=== PATIENT | male | born 1970 | race Caucasian/White ===

== ENCOUNTER 2023-06-11 22:19 | Emergency (ER) | payer OTHER, SELFPAY ==
--- OUTSIDE RECORDS SUMMARY | 2023-06-11 22:23 | XMS REPORT | Continuity of Care Document ---
Author Name Unknown Address [address] [facility] [address] [place] [address] [facility] thconnect Address [address] [facility] [address] [place] [address] Care Team Providers Care Infantry Officer Name Role Phone Edwardo Young Attending Clinician Unavailable VIOLET LEBLANC Attending Clinician Unavailable JADA JACKSON Attending Clinician Unavailable ELLIE JONES Attending Clinician Unavailable Payers Payer Name Policy Type Policy Number Effective Date Expirati on Date Source [facility] 53 [id number] 2021 00:00:00 2022 00:00:00 [facility] [employer] 53 [id number] 2019 00:00:00 [facility] Problems Condition Name Condition Details Condition Category Status Onset Date Resolution Date Last Treatment Date Treating Clinician Comments Source [id number] Cataract of both eyes, unspecifie d cataract type Problem [facility] [id number] Mixed hyperlipid emia Problem [facility] [id number] Diverticul osis Problem [facility] [id number] Asymptomat ic hypertensi ve urgency Problem [facility] [id number] Body mass index [BMI] 37.0-37.9, adult Problem [facility] [id number] GERD without esophagiti s Problem [facility] [id number] Other tear of medial meniscus of right knee as current injury, subsequent encounter Problem [facility] [id number] HTN, goal below 140/90 Problem [facility] [id number] Obstructiv e sleep apnea (adult) (pediatric ) Problem [facility] [id number] Dependence on other enabling machines and devices Problem [facility] [id number] Chewing tobacco nicotine dependence without complicati on Problem [facility] [id number] Morbid (severe) obesity due to excess calories Problem [facility] [id number] 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 Problem [facility] [id number] Stented coronary artery Problem [facility] [id number] Abnormal chest xray Problem [facility] Post-infla mmatory pulmonary fibrosis Lung granuloma Problem [facility] Allergies, Adverse Reactions, Alerts Allergy Name Allergy Type Status Severity Reaction(s) Onset Date Inactive Date Treating Clinician Comments Source No Known Allergie s DA Active U 2019-05 00:00: 00 [facility] No Known Allergie s DA Active U 2019-05 00:00: 00 [facility] Social History Social Habit Start Date Stop Date Quantity Comments Source History of Tobacco Use Light tobacco smoker [facility] Sex Assigned At [facility] Smoking Status Start Date Stop Date Source Light tobacco smoker 2022-02-19 00:00:00 [facility] Medications Ordered Medication Name Filled Medication Name Start Date Stop Date Current Medication? Ordering Clinician Indication Dosage Frequency Signature (SIG) Comments Components Source Ozempic 0.25 or 0.5 MG/DOSE Ozempic 0.25 or 0.5 MG/DOSE 2021-0 10-30 00:00: 00 01-28 00:00 :00 No Ozempic 0.25 or 0.5 MG/DOSE Ozempic 0.25 or 0.5 MG/DOSE Ozempic 0.25 or 0.5 MG/DOSE 2021-0 7 00:00: 00 01-28 00:00 :00 No Ozempic 0.25 or 0.5 MG/DOSE Ozempic 0.25 or 0.5 MG/DOSE Ozempic 0.25 or 0.5 MG/DOSE 2021-0 10-30 00:00: 00 01-28 00:00 :00 No Ozempic 0.25 or 0.5 MG/DOSE Ozempic 0.25 or 0.5 MG/DOSE Ozempic 0.25 or 0.5 MG/DOSE 2021-0 10-30 00:00: 00 01-28 00:00 :00 No Ozempic 0.25 or 0.5 MG/DOSE metFORMIN HCl ER 750 MG metFORMIN HCl ER 750 MG 0 2 00:00: 00 No 1{table t_with_ evening _meal} QD metFORMIN HCl ER 750 MG metFORMIN HCl ER 750 MG metFORMIN HCl ER 750 MG 0 211 00:00: 00 No 1{table t_with_ evening _meal} QD metFORMIN HCl ER 750 MG Lisinopril Lisinopril 09-17 00:00: 00 Yes Edwardo Young TAKE 1 TABLET BY MOUTH EVERY DAY [facility] Hydrochloro thiazide Hydrochloro thiazide 09-17 00:00: 00 Yes Edwardo Young 1 tablet in the morning [facility] Bystolic Bystolic Yes Edwardo Young 1 tablet [facility] Amlodipine Besylate Amlodipine Besylate Yes Edwardo Young 1 tablet [facility] NIFEdipine ER 60 MG NIFEdipine ER 60 MG No 1{table t_on_an _empty_ stomach } QD NIFEdipine ER 60 MG Atorvastati n Calcium 80 MG Atorvastati n Calcium 80 MG No 1{table t} QD Atorvastat in Calcium 80 MG Brilinta 90 MG Brilinta 90 MG No 1{table t} BID Brilinta 90 MG Lisinopril 40 MG Lisinopril 40 MG No 1{table t} QD Lisinopril 40 MG NIFEdipine ER 60 MG NIFEdipine ER 60 MG No 1{table t_on_an _empty_ stomach } QD NIFEdipine ER 60 MG metFORMIN HCl ER 750 MG metFORMIN HCl ER 750 MG No 1{table t_with_ evening _meal} QD metFORMIN HCl ER 750 MG Lisinopril 40 MG Lisinopril 40 MG No 1{table t} QD Lisinopril 40 MG Chlorthalid one 25 MG Chlorthalid one 25 MG No 1{table t_in e_morni ng_with _food} QD Chlorthali done 25 MG Brilinta 90 MG Brilinta 90 MG No 1{table t} BID Brilinta 90 MG Carvedilol 12.5 MG Carvedilol 12.5 MG No 1{table t_with_ food} BID Carvedilol 12.5 MG Atorvastati n Calcium 80 MG Atorvastati n Calcium 80 MG No 1{table t} QD Atorvastat in Calcium 80 MG atorvastati n atorvastati n No atorvastat in metFORMIN HCl ER 750 MG metFORMIN HCl ER 750 MG No 1{table t_with_ evening _meal} QD metFORMIN HCl ER 750 MG Atorvastati n Calcium 80 MG Atorvastati n Calcium 80 MG No 1{table t} QD Atorvastat in Calcium 80 MG Lisinopril 40 MG Lisinopril 40 MG No 1{table t} QD Lisinopril 40 MG NIFEdipine ER 60 MG NIFEdipine ER 60 MG No 1{table t_on_an _empty_ stomach } QD NIFEdipine ER 60 MG Carvedilol 12.5 MG Carvedilol 12.5 MG No 1{table t_with_ food} BID Carvedilol 12.5 MG Lisinopril 40 MG Lisinopril 40 MG No 1{table t} QD Lisinopril 40 MG atorvastati n atorvastati n No atorvastat in Brilinta 90 MG Brilinta 90 MG No 1{table t} BID Brilinta 90 MG Chlorthalid one 25 MG Chlorthalid one 25 MG No 1{table t_in e_morni ng_with _food} QD Chlorthali done 25 MG metFORMIN HCl ER 750 MG metFORMIN HCl ER 750 MG No BID metFORMIN HCl ER 750 MG Atorvastati n Calcium 80 MG Atorvastati n Calcium 80 MG No 1{table t} QD Atorvastat in Calcium 80 MG Lisinopril 40 MG Lisinopril 40 MG No 1{table t} QD Lisinopril 40 MG NIFEdipine ER 60 MG NIFEdipine ER 60 MG No 1{table t_on_an _empty_ stomach } QD NIFEdipine ER 60 MG Carvedilol 12.5 MG Carvedilol 12.5 MG No 1{table t_with_ food} BID Carvedilol 12.5 MG Lisinopril 40 MG Lisinopril 40 MG No 1{table t} QD Lisinopril 40 MG atorvastati n atorvastati n No atorvastat in Brilinta 90 MG Brilinta 90 MG No 1{table t} BID Brilinta 90 MG Chlorthalid one 25 MG Chlorthalid one 25 MG No 1{table t_in e_morni ng_with _food} QD Chlorthali done 25 MG metFORMIN HCl ER 750 MG metFORMIN HCl ER 750 MG No BID metFORMIN HCl ER 750 MG Atorvastati n Calcium 80 MG Atorvastati n Calcium 80 MG No 1{table t} QD Atorvastat in Calcium 80 MG Lisinopril 40 MG Lisinopril 40 MG No 1{table t} QD Lisinopril 40 MG NIFEdipine ER 60 MG NIFEdipine ER 60 MG No 1{table t_on_an _empty_ stomach } QD NIFEdipine ER 60 MG Carvedilol 12.5 MG Carvedilol 12.5 MG No 1{table t_with_ food} BID Carvedilol 12.5 MG Lisinopril 40 MG Lisinopril 40 MG No 1{table t} QD Lisinopril 40 MG atorvastati n atorvastati n No atorvastat in Brilinta 90 MG Brilinta 90 MG No 1{table t} BID Brilinta 90 MG Chlorthalid one 25 MG Chlorthalid one 25 MG No 1{table t_in e_morni ng_with _food} QD Chlorthali done 25 MG Lisinopril 40 MG Lisinopril 40 MG No 1{table t} QD Lisinopril 40 MG Lisinopril 40 MG Lisinopril 40 MG No 1{table t} QD Lisinopril 40 MG metFORMIN HCl ER 750 MG metFORMIN HCl ER 750 MG No metFORMIN HCl ER 750 MG Chlorthalid one 25 MG Chlorthalid one 25 MG No Chlorthali done 25 MG Atorvastati n Calcium 80 MG Atorvastati n Calcium 80 MG No 1{table t} QD Atorvastat in Calcium 80 MG Brilinta 90 MG Brilinta 90 MG No 1{table t} BID Brilinta 90 MG atorvastati n atorvastati n No atorvastat in Carvedilol 12.5 MG Carvedilol 12.5 MG No 1{table t_with_ food} BID Carvedilol 12.5 MG NIFEdipine ER 60 MG NIFEdipine ER 60 MG No NIFEdipine ER 60 MG atorvastati n atorvastati n No atorvastat in Brilinta Brilinta No Brilinta Lisinopril 40 MG Lisinopril 40 MG No 1{table t} QD Lisinopril 40 MG Carvedilol Carvedilol No Carvedilol Chlorthalid one 25 MG Chlorthalid one 25 MG No 1{table t_in e_morni ng_with _food} QD Chlorthali done 25 MG atorvastati n atorvastati n No atorvastat in Lisinopril 40 MG Lisinopril 40 MG No 1{table t} QD Lisinopril 40 MG Lisinopril 40 MG Lisinopril 40 MG No 1{table t} QD Lisinopril 40 MG Carvedilol 12.5 MG Carvedilol 12.5 MG No 1{table t_with_ food} BID Carvedilol 12.5 MG NIFEdipine ER 60 MG NIFEdipine ER 60 MG No 1{table t_on_an _empty_ stomach } QD NIFEdipine ER 60 MG Atorvastati n Calcium 80 MG Atorvastati n Calcium 80 MG No 1{table t} QD Atorvastat in Calcium 80 MG Brilinta 90 MG Brilinta 90 MG No 1{table t} BID Brilinta 90 MG Chlorthalid one 25 MG Chlorthalid one 25 MG No 1{table t_in e_morni ng_with _food} QD Chlorthali done 25 MG atorvastati n atorvastati n No atorvastat in Lisinopril 40 MG Lisinopril 40 MG No 1{table t} QD Lisinopril 40 MG Lisinopril 40 MG Lisinopril 40 MG No 1{table t} QD Lisinopril 40 MG Carvedilol 12.5 MG Carvedilol 12.5 MG No 1{table t_with_ food} BID Carvedilol 12.5 MG Aspirin Adult Low Dose 81 MG Aspirin Adult Low Dose 81 MG 09-10 00:00 :00 No 1{table t} QD Aspirin Adult Low Dose 81 MG Aspirin Adult Low Dose 81 MG Aspirin Adult Low Dose 81 MG 09-10 00:00 :00 No 1{table t} QD Aspirin Adult Low Dose 81 MG Vital Signs Vital Name Observation Time Observation Value Comments S normace height 2021-11-27 07:50:00 70 [in_i] Commo n [facility] weight 2021-11-27 07:50:00 238 [lb_av] Comm on [facility] temperature 2021-11-27 07:50:00 98 [degF] Comm on [facility] bmi 2021-11-27 07:50:00 34.15 kg/m2 Comm on [facility] blood pressure systolic 2021-11-27 07:50:00 120 mm[Hg] Common [facility] blood pressure diastolic 2021-11-27 07:50:00 70 mm[Hg] Common [facility] height 2021-10-30 08:20:00 70 [in_i] Commo n [facility] weight 2021-10-30 08:20:00 251.1 [lb_av] Co mmon [facility] temperature 2021-10-30 08:20:00 98.1 [degF] Com mon [facility] bmi 2021-10-30 08:20:00 36.03 kg/m2 Comm on [facility] oximetry 2021-10-30 08:20:00 98 % Commo n [facility] respiratory rate 2021-10-30 08:20:00 17 /min Common [facility] blood pressure systolic 2021-10-30 08:20:00 127 mm[Hg] Common [facility] blood pressure diastolic 2021-10-30 08:20:00 64 mm[Hg] Common [facility] height 2021-06-12 10:20:00 70 [in_i] Commo n [facility] weight 2021-06-12 10:20:00 250.3 [lb_av] Co on [facility] temperature 2021-06-12 10:20:00 97.8 [degF] Com mon [facility] bmi 2021-06-12 10:20:00 35.91 kg/m2 Comm on [facility] oximetry 2021-06-12 10:20:00 99 % Commo n [facility] respiratory rate 2021-06-12 10:20:00 18 /min [facility] blood pressure systolic 2021-06-12 10:20:00 111 mm[Hg] [facility] blood pressure diastolic 2021-06-12 10:20:00 61 mm[Hg] Common [facility] height 2021-04-13 15:50:00 70 [in_i] Commo n [facility] weight 2021-04-13 15:50:00 268.8 [lb_av] Co [facility] bmi 2021-04-13 15:50:00 38.56 kg/m2 Comm on [facility] blood pressure systolic 2021-04-13 15:50:00 139 mm[Hg] Common [facility] blood pressure diastolic 2021-04-13 15:50:00 78 mm[Hg] [facility] Procedures Procedure Date / Time Performed Performing Clinicia n Source [id number] 2020-04-24 00:00:00 LETTY [facility] [id number] 2020-04-24 00:00:00 PATSN [facility] [id number] 2020-04-24 00:00:00 PATSN [facility] [id number] 2020-04-24 00:00:00 PATSN [facility] Encounters Start Date/Time End Date/Time Encounter Type Admission Type Attending [facility] Care Facility Care Department Encounter ID Source 2022-03-10 08:38:01 Outpatient Young, Edwardo STLC STLMLC [id number] [facility] 2021-12-03 14:16:00 Outpatient Young, Edwardo STLC STLMLC [id number] [facility] 2021-11-16 15:38:00 Outpatient Young, Edwardo STLC STLMLC [id number] [facility] 2021-11-04 17:14:00 Outpatient Young, Edwardo STLMLC STLMLC [id number] [facility] 2021-10-28 16:46:00 Outpatient Young, Edwardo STLMLC STLMLC [id number] [facility] 2021-09-10 11:53:01 Outpatient Young, Edwardo STLMLC STLMLC [id number] [facility] 2021-05-27 14:24:18 Outpatient Young, Edwardo STLMLC STLMLC [id number] [facility] 2021-05-27 14:23:20 Outpatient Young, Edwardo STLMLC STLMLC [id number] [facility] 2021-05-27 14:20:17 Outpatient Young, Edwardo STLMLC STLMLC [id number] [facility] 2021-05-27 13:13:03 Outpatient Young, Edwardo STLMLC STLMLC [id number] [facility] 2021-05-27 12:04:57 Outpatient Young, Edwardo STLMLC STLMLC [id number] [facility] 2021-05-27 11:25:35 Outpatient Young, Edwardo STLC STL[facility]C [id number] [facility] 2021-05-27 11:15:47 Outpatient Young, Edwardo STLC STL[facility] [id number] [facility] 2021-05-27 11:15:20 Outpatient Young, Edwardo STLC STL[facility]C [id number] [facility] 2020-04-24 16:23:00 In[id number] [facility] 2022-02-18 00:00:00 2022-02-18 00:00:00 (TEL) STLMLC STLMLC [id number] [facility] 2021-12-04 00:00:00 2021-12-04 00:00:00 (TEL) STLMLC STLMLC [id number] [facility] 2021-12-04 00:00:00 2021-12-04 00:00:00 (TEL) STLMLC STLMLC [id number] [facility] 2021-11-27 00:00:00 2021-11-27 00:00:00 OFFICE VISIT ESTAB PT LEVEL 4 STLMLC STLMLC [id number] [facility] 2021-10-30 00:00:00 2021-10-30 00:00:00 PREV VISIT EST AGE 40-64 STLMLC STLMLC [id number] [facility] 2021-07-20 00:00:00 2021-07-20 00:00:00 Outpatient VIOLET LEBLANC [id number] [facility] 2021-06-12 00:00:00 2021-06-12 00:00:00 OFFICE VISIT ESTAB PT LEVEL 4 STLMLC STLMLC [id number] [facility] 2021-06-12 00:00:00 2021-06-12 00:00:00 (TEL) STLMLC STLMLC [id number] [facility] 2021-04-21 00:00:00 2021-04-21 00:00:00 Outpatient [facility]ADA [facility]ACKSON [id number] [facility] 2021-04-13 00:00:00 2021-04-13 00:00:00 OFFICE VISIT EST PT LEVEL 3 STLMLC STLMLC [id number] [facility] 2021-04-08 00:00:00 2021-04-08 00:00:00 Outpatient JADA JACKSON [id number] [facility] 2021-03-30 00:00:00 2021-03-30 00:00:00 Outpatient JADA JACKSON [id number] [facility] 2021-03-05 14:00:00 2021-03-05 14:00:00 Outpatient ELLIE JONES [id number] [facility] 2020-03-31 00:00:00 2020-03-31 00:00:00 Outpatient STLMLC STLMLC [id number] [facility] 2020-03-21 00:00:00 2020-03-21 00:00:00 Outpatient STLMLC STLMLC [id number] [facility] 2019-10-19 08:45:00 2019-10-19 08:45:[address] [facility] [id number] [facility] 2019-09-18 15:15:00 2019-09-18 15:15:[address] [facility] [id number] [facility] 2019-09-06 13:25:00 2019-09-06 13:25:00 [facility] [id number] [facility] 2019-07-06 11:15:00 2019-07-06 11:15:00 [address] [facility] [id number] [facility] Results Test Description Test Time Test Comments Results Result Co mments Source COMPREHENSIVE METABOLIC [id number] 08:13:00* Test Item Value Reference Range Interpretation Comme nts SODIUM (test code = NA) 137 mEq/L 134-147 N POTASSIUM (test code = K) 3.7 mEq/L 3.4-5.0 N CHLORIDE (test code = CL) 106 mEq/L 100-108 N CARBON DIOXIDE (test code = CO2) 25 mEq/l 21-33 N ANION GAP (test code = GAP) 10 0-20 N GLUCOSE (test code = GLU) 147 mg/dL 70-110 H BLOOD UREA NITROGEN (test code = BUN) 15 mg/dL 7-18 GLOMERULAR FILTRATION RATE (test code = GFR) 90.1 95-105 L Units of measure = ml/min/1.73 m2 CREATININE (test code = CREAT) 0.9 mg/dL 0.6-1.3 N TOTAL PROTEIN (test code = PROT) 6.8 g/dL 6.4-8.2 N ALBUMIN (test code = ALB) 3.80 g/dL 3.4-5.0 N CALCIUM (test code = CA) 9.3 mg/dL 8.0-10.5 N BILIRUBIN TOTAL (test code = BILT) 1.00 mg/dL 0.0-1.0 N SGOT/AST (test code = AST) 39 IUnit/L 15-37 H SGPT/ALT (test code = ALT) 61 IUnit/L 30-65 N ALKALINE PHOSPHATASE TOTAL (test code = ALKP) 57 IUnit/L 20-125 N CBC W/AUTO [id number] 07:55:00* Test Item Value Reference Range Interpretation Comme nts WHITE BLOOD CELL (test code = WBC) 8.3 x10 3/uL 4.5-11.0 N RED BLOOD CELL (test code = RBC) 5.03 x10 6/uL 4.00-5.60 N HEMOGLOBIN (test code = HGB) 15.7 g/dL 12.5-16.9 N HEMATOCRIT (test code = HCT) 46.5 % 37.5-50.7 N MEAN CELL VOLUME (test code = MCV) 92.4 fL 81.0-99.0 N MEAN CELL HGB (test code = MCH) 31.2 pg 27.0-33.0 N MEAN CELL HGB CONCETRATION (test code = MCHC) 33.8 g/dL 33.0-37.0 N RED CELL DISTRIBUTION WIDTH CV (test code = RDW) 12.6 % 11.5-14.5 N RED CELL DISTRIBUTION WIDTH SD (test code = RDW-SD) 42.7 fL 37.0-54.0 N PLATELET COUNT (test code = PLT) 201 x10 3/uL 150-400 N MEAN PLATELET VOLUME (test c ode = MPV) 10.4 fL 7.0-9.0 H NEUTROPHIL % (test code = NT%) 69.3 % 56.0-77.0 N IMMATURE GRANULOCYTE % (test code = IG%) 0.4 % 0.0-2.0 N LYMPHOCYTE % (test code = LY%) 15.6 % 14.0-32.0 N MONOCYTE % (test code = MO%) 10.7 % 4.8-9.0 H EOSINOPHIL % (test code = EO%) 3.2 % 0.3-3.7 N BASOPHIL % (test code = BA%) 0.8 % 0.0-2.0 N NUCLEATED RBC % (test code = NRBC%) 0.0 % 0-0 N NEUTROPHIL # (test code = NT#) 5.75 x10 3/uL 2.0-7.6 N IMMATURE GRANULOCYTE # (test code = IG#) 0.03 x10 3/uL 0.00-0.03 N LYMPHOCYTE # (test code = LY#) 1.30 x10 3/uL 1.0-3.8 N MONOCYTE # (test code = MO#) 0.89 x10 3/uL 0.1-0.8 H EOSINOPHIL # (test code = EO#) 0.27 x10 3/uL 0.0-0.2 H BASOPHIL # (test code = BA#) 0.07 x10 3/uL 0.0-0.2 N NUCLEATED RBC # (test code = NRBC#) 0.00 x10 3/uL 0.0-0.1 N MANUAL DIFF REQUIRED (test c ode = MDIFF) NO CBC W/AUTO [id number] 07:46:00* Test Item Value Reference Range Interpretation Comme nts WHITE BLOOD CELL (test code = WBC) x10 3/uL 4.5-11.0 RED BLOOD CELL (test code = RBC) x10 6/uL 4.00-5.60 HEMOGLOBIN (test code = HGB) 15.7 g/dL 12.5-16.9 N HEMATOCRIT (test code = HCT) 46.5 % 37.5-50.7 N MEAN CELL VOLUME (test code = MCV) fL 81.0-99.0 MEAN CELL HGB (test code = MCH) pg 27.0-33.0 MEAN CELL HGB CONCETRATION ( test code = MCHC) g/dL 33.0-37.0 RED CELL DISTRIBUTION WIDTH CV (test code = RDW) % 11.5-14.5 PLATELET COUNT (test code = PLT) 201 x10 3/uL 150-400 N NEUTROPHIL % (test code = NT%) % 56.0-77.0 LYMPHOCYTE % (test code = LY%) % 14.0-32.0 NEUTROPHIL # (test code = NT#) x10 3/uL 2.0-7.6 LYMPHOCYTE # (test code = LY#) x10 3/uL 1.0-3.8 MANUAL DIFF REQUIRED (test c ode = MDIFF) COMPREHENSIVE METABOLIC [id number] 05:32:00* Test Item Value Reference Range Interpretation Comme nts SODIUM (test code = NA) 136 mEq/L 134-147 N POTASSIUM (test code = K) 3.8 mEq/L 3.4-5.0 N CHLORIDE (test code = CL) 105 mEq/L 100-108 N CARBON DIOXIDE (test code = CO2) 23 mEq/l 21-33 N ANION GAP (test code = GAP) 11 0-20 N GLUCOSE (test code = GLU) 154 mg/dL 70-110 H BLOOD UREA NITROGEN (test code = BUN) 10 mg/dL 7-18 N GLOMERULAR FILTRATION RATE (test code = GFR) 79.8 95-105 L Units of measure = ml/min/1.73 m2 CREATININE (test code = CREAT) 1.0 mg/dL 0.6-1.3 N TOTAL PROTEIN (test code = PROT) 7.1 g/dL 6.4-8.2 N ALBUMIN (test code = ALB) 3.90 g/dL 3.4-5.0 N CALCIUM (test code = CA) 9.0 mg/dL 8.0-10.5 N BILIRUBIN TOTAL (test code = BILT) 1.20 mg/dL 0.0-1.0 H SGOT/AST (test code = AST) 65 IUnit/L 15-37 H SGPT/ALT (test code = ALT) 64 IUnit/L 30-65 N ALKALINE PHOSPHATASE TOTAL (test code = ALKP) 57 IUnit/L 20-125 N LIPID PROFILE (CORONARY RISK)2020-04-25 05:32:00* Test Item Value Reference Range Interpretation Comme nts TRIGLYCERIDES (test code = TRIG) 170 mg/dL 40-150 H CHOLESTEROL (test code = CHOL) 179 mg/dL <200 CHOLESTEROL/HDL RATIO (test code = CHOLHDL) 5.54 RATIO 3.43-4.97 H RISK ASSOCIATED WITH CHOL/HDL RATIOS: RISK MALE FEMALE1/2 AVERAGE 3.43 3.27AVERAGE 4.97 4.442X AVERAGE 9.55 7.053X AVERAGE 23.39 11.04 NOTE THAT THE REFERENCE VALUE IS RELATEDTO RISK LEVELS RECOMMENDED BY THE NATL.HEART, LUNG, AND BLOOD INST. HDL CHOLESTEROL (test code = HDL) 32.3 mg/dL 32-72 N LIPOPROTEIN LDL (test code = LDL) 142.4 mg/dL 0-100 H <100 [id number] 0-129 NEAR OPTIMAL/ABOVE [id number] HIGH>XE=318 VERY HIGH*Guidelines provided by the National Cholesterol EducationProgram Adult Treatment Panel III [id number] 05:32:00* Test Item Value Reference Range Interpretation Comme nts MAGNESIUM (test code = MAG) 2.21 mg/dL 1.80-2.40 N [id number] 05:32:00* Test Item Value Reference Range Interpretation Comme nts TROPONIN-I (test code = TROPI) 9.373 ng/mL 0.000-0.045 HH Critical result called to Magdaleno [email or web address] at 0532 04/25/20Nurse read back result and tech confirmed it's correct? YESNegative: <= 0.045 Positive: >= 0.046 Correlation with serial results, other cardiac markers andclinical findings is necessary to determine the clinicalsignificance of this result. Results using different methodologies should not be comparedto one another as quantitative results may vary by method. B-TYPE NATRIURETIC [id number] 05:30:00* Test Item Value Reference Range Interpretation Comme nts B-TYPE NATRIURETIC PEPTIDE ( test code = BNP) 60.0 PG/ML 0-100 N HGBA1C%2020-04-25 03:56:00* Test Item Value Reference Range Interpretation Comme nts HGBA1C% (test code = HGBA1C%) 6.2 %A1C 4.8-6.0 H CBC W/AUTO [id number] 03:35:00* Test Item Value Reference Range Interpretation Comme nts WHITE BLOOD CELL (test code = WBC) 9.6 x10 3/uL 4.5-11.0 N RED BLOOD CELL (test code = RBC) 4.91 x10 6/uL 4.00-5.60 N HEMOGLOBIN (test code = HGB) 15.3 g/dL 12.5-16.9 N HEMATOCRIT (test code = HCT) 44.9 % 37.5-50.7 N MEAN CELL VOLUME (test code = MCV) 91.4 fL 81.0-99.0 N MEAN CELL HGB (test code = MCH) 31.2 pg 27.0-33.0 N MEAN CELL HGB CONCETRATION (test code = MCHC) 34.1 g/dL 33.0-37.0 N RED CELL DISTRIBUTION WIDTH CV (test code = RDW) 12.6 % 11.5-14.5 N RED CELL DISTRIBUTION WIDTH SD (test code = RDW-SD) 41.9 fL 37.0-54.0 N PLATELET COUNT (test code = PLT) 204 x10 3/uL 150-400 N MEAN PLATELET VOLUME (test c ode = MPV) 10.5 fL 7.0-9.0 H NEUTROPHIL % (test code = NT%) 73.1 % 56.0-77.0 N IMMATURE GRANULOCYTE % (test code = IG%) 0.4 % 0.0-2.0 N LYMPHOCYTE % (test code = LY%) 14.7 % 14.0-32.0 N MONOCYTE % (test code = MO%) 9.4 % 4.8-9.0 H EOSINOPHIL % (test code = EO%) 1.8 % 0.3-3.7 N BASOPHIL % (test code = BA%) 0.6 % 0.0-2.0 N NUCLEATED RBC % (test code = NRBC%) 0.0 % 0-0 N NEUTROPHIL # (test code = NT#) 6.98 x10 3/uL 2.0-7.6 N IMMATURE GRANULOCYTE # (test code = IG#) 0.04 x10 3/uL 0.00-0.03 H LYMPHOCYTE # (test code = LY#) 1.40 x10 3/uL 1.0-3.8 N MONOCYTE # (test code = MO#) 0.90 x10 3/uL 0.1-0.8 H EOSINOPHIL # (test code = EO#) 0.17 x10 3/uL 0.0-0.2 N BASOPHIL # (test code = BA#) 0.06 x10 3/uL 0.0-0.2 N NUCLEATED RBC # (test code = NRBC#) 0.00 x10 3/uL 0.0-0.1 N MANUAL DIFF REQUIRED (test c ode = MDIFF) NO [id number] 00:24:00* Test Item Value Reference Range Interpretation Comme [facility] TROPONIN-I (test code = TROPI) 14.265 ng/mL 0.000-0.045 HH Critical result called to Magdaleno SALDAÑA G.LAB.KM1 at 0024 04/25/20Nurse read back result and tech confirmed it's correct? YESNegative: <= 0.045 Positive: >= 0.046 Correlation with serial results, other cardiac markers andclinical findings is necessary to determine the clinicalsignificance of this result. Results using different methodologies should not be comparedto one another as quantitative results may vary by method. [id number] 20:12:00* Test Item Value Reference Range Interpretation Comme nts ACT-ISTAT (test code = ACTI) 296 SEC 74-137 H Performed by cer tified mechanical spreader operator at [facility] LIPOPROTEIN [id number] 17:38:00* Test Item Value Reference Range Interpretation Comme nts LIPOPROTEIN LDL (test code = LDL) 149.5 mg/dL 0-100 H <100 BRXCSLO12 0-129 NEAR OPTIMAL/ABOVE [id number] HIGH>FA=264 VERY HIGH*Guidelines provided by the National Cholesterol EducationProgram Adult Treatment Panel III B-TYPE NATRIURETIC [id number] 17:22:00* Test Item Value Reference [facility] B-[facility] NATRIURETIC PEPTIDE ( test code = BNP) 76.0 PG/ML 0-100 N BASIC METABOLIC [id number] 17:20:00* Test Item Value Reference Range Interpretation Comme [facility] SODIUM (test code = NA) 139 mEq/L 134-147 N POTASSIUM (test code = K) 3.8 mEq/L 3.4-5.0 N CHLORIDE (test code = CL) 105 mEq/L 100-108 N CARBON DIOXIDE (test code = CO2) 27 mEq/l 21-33 N ANION GAP (test code = GAP) 11 0-20 N GLUCOSE (test code = GLU) 143 mg/dL 70-110 H BLOOD UREA NITROGEN (test code = BUN) 11 mg/dL 7-18 N GLOMERULAR FILTRATION RATE (test code = GFR) 90.1 95-105 L Units of measure = ml/min/1.73 m2 CREATININE (test code = CREAT) 0.9 mg/dL 0.6-1.3 N CALCIUM (test code = CA) 8.7 mg/dL 8.0-10.5 N [id number] 17:20:00* Test Item Value Reference Range Interpretation [facility] TROPONIN-I (test code = TROPI) 7.768 ng/mL 0.000-0.045 HH Critical result called to Magdaleno FLYNN G.LAB. at 1719 04/24/20Nurse read back result and tech confirmed it's correct? YNegative: <= 0.045 Positive: >= 0.046 Correlation with serial results, other cardiac markers andclinical findings is necessary to determine the clinicalsignificance of this result. Results using different methodologies should not be comparedto one another as quantitative results may vary by method. PROTHROMBIN [id number] 17:14:00* Test Item Value Reference Range Interpretation [facility] TIME PATIENT (test code = PTP) 12.4 SECONDS 9.3-12.9 N INTERNATIONAL NORMAL RATIO (test code = INR) 1.1 0.8-1.2 N TARGET INR BY INDICATION Indication INR1. Prophylaxis of venous thrombosis 2.0 - 3.0 (orthopedic surgery), Prophylaxis of venous thrombosis (other than high-risk surgery), Treatment of Deep Vein Thrombosis/Pulmonary Embolism, Prevention of systemic embolism - Tissue heart valves, Acute Myocardial Infarction (to prevent systemic embolism), Valvular heart disease, Atrial Fibrillation, Bileaflet mechanical valve in aortic position.2. Mechanical prosthetic valves (high risk), 2.5 - 3.5 Presence of Lupus Anticoagulant or Antiphospholipid Antibodies, Prevention of systemic embolism - Acute Myocardial Infarction (to prevent recurrent infarct). THROMBOPLASTIN TIME [id number] 17:14:00* Test Item Value Reference Range Interpretation [facility] THROMBOPLASTIN TIME PARTIAL (test code = PTT) 38.9 Seconds 25.0-39.5 N Therapeutic Rang e: 50.4 - 88.3 Seconds Effective 08/15/2018 PROTHROMBIN [id number] 17:13:00* Test Item Value Reference Range Interpretation [facility] PROTHROMBIN TIME PATIENT (test code = PTP) 12.4 SECONDS 9.3-12.9 N INTERNATIONAL NORMAL RATIO (test code = INR) 1.1 0.8-1.2 N TARGET INR BY INDICATION Indication INR1. Prophylaxis of venous thrombosis 2.0 - 3.0 (orthopedic surgery), Prophylaxis of venous thrombosis (other than high-risk surgery), Treatment of Deep Vein Thrombosis/Pulmonary Embolism, Prevention of systemic embolism - Tissue heart valves, Acute Myocardial Infarction (to prevent systemic embolism), Valvular heart disease, Atrial Fibrillation, Bileaflet mechanical valve in aortic position.2. Mechanical prosthetic valves (high risk), 2.5 - 3.5 Presence of Lupus Anticoagulant or Antiphospholipid Antibodies, Prevention of systemic embolism - Acute Myocardial Infarction (to prevent recurrent infarct). THROMBOPLASTIN TIME [id number] 17:13:00* Test Item Value Reference Range Interpretation [facility] THROMBOPLASTIN TIME PARTIAL (test code = PTT) Seconds 25.0-39.5 CBC W/AUTO [id number] 17:05:00* Test Item Value Reference Range Interpretation [facility] WHITE BLOOD CELL (test code = WBC) 9.3 x10 3/uL 4.5-11.0 N RED BLOOD CELL (test code = RBC) 5.08 x10 6/uL 4.00-5.60 N HEMOGLOBIN (test code = HGB) 15.9 g/dL 12.5-16.9 N HEMATOCRIT (test code = HCT) 45.8 % 37.5-50.7 N MEAN CELL VOLUME (test code = MCV) 90.2 fL 81.0-99.0 N MEAN CELL HGB (test code = MCH) 31.3 pg 27.0-33.0 N MEAN CELL HGB CONCETRATION (test code = MCHC) 34.7 g/dL 33.0-37.0 N RED CELL DISTRIBUTION WIDTH CV (test code = RDW) 12.4 % 11.5-14.5 N RED CELL DISTRIBUTION WIDTH SD (test code = RDW-SD) 40.9 fL 37.0-54.0 N PLATELET COUNT (test code = PLT) 210 x10 3/uL 150-400 N MEAN PLATELET VOLUME (test c ode = MPV) 10.3 fL 7.0-9.0 H NEUTROPHIL % (test code = NT%) 69.7 % 56.0-77.0 N IMMATURE GRANULOCYTE % (test code = IG%) 0.3 % 0.0-2.0 N LYMPHOCYTE % (test code = LY%) 18.3 % 14.0-32.0 N MONOCYTE % (test code = MO%) 8.2 % 4.8-9.0 N EOSINOPHIL % (test code = EO%) 2.6 % 0.3-3.7 N BASOPHIL % (test code = BA%) 0.9 % 0.0-2.0 N NUCLEATED RBC % (test code = NRBC%) 0.0 % 0-0 N NEUTROPHIL # (test code = NT#) 6.47 x10 3/uL 2.0-7.6 N IMMATURE GRANULOCYTE # (test code = IG#) 0.03 x10 3/uL 0.00-0.03 N LYMPHOCYTE # (test code = LY#) 1.70 x10 3/uL 1.0-3.8 N MONOCYTE # (test code = MO#) 0.76 x10 3/uL 0.1-0.8 N EOSINOPHIL # (test code = EO#) 0.24 x10 3/uL 0.0-0.2 H BASOPHIL # (test code = BA#) 0.08 x10 3/uL 0.0-0.2 N NUCLEATED RBC # (test code = NRBC#) 0.00 x10 3/uL 0.0-0.1 N MANUAL DIFF REQUIRED (test c ode = MDIFF) NO CBC W/AUTO [id number] 17:03:00* Test Item Value Reference Range Interpretation Comme nts WHITE BLOOD CELL (test code = WBC) x10 3/uL 4.5-11.0 RED BLOOD CELL (test code = RBC) x10 6/uL 4.00-5.60 HEMOGLOBIN (test code = HGB) 15.9 g/dL 12.5-16.9 N HEMATOCRIT (test code = HCT) 45.8 % 37.5-50.7 N MEAN CELL VOLUME (test code = MCV) fL 81.0-99.0 MEAN CELL HGB (test code = MCH) pg 27.0-33.0 MEAN CELL HGB CONCETRATION ( test code = MCHC) g/dL 33.0-37.0 RED CELL DISTRIBUTION WIDTH CV (test code = RDW) % 11.5-14.5 PLATELET COUNT (test code = PLT) 210 x10 3/uL 150-400 N NEUTROPHIL % (test code = NT%) % 56.0-77.0 LYMPHOCYTE % (test code = LY%) % 14.0-32.0 NEUTROPHIL # (test code = NT#) x10 3/uL 2.0-7.6 LYMPHOCYTE # (test code = LY#) x10 3/uL 1.0-3.8 MANUAL DIFF REQUIRED (test c ode = MDIFF) Chest Pa And Lat (2 Views)Chest Pa And Lat (2 Views) Notes Date/Time Note Provider Source 2020-04-26 15:41:00 [id number] [id number]+BQ9jMEz8119-98-58D26:4 1:00 [facility] ([facility])Cardiology Progress NoteREPORT#:[id number] REPORT STATUS: SignedDATE:04/26/20 TIME: 1540 PATIENT: GIOVANNI BHATT UNIT #: [id number]#: [id number] [address] [birth year] AGE: 50 SEX: M ATTEND: Jony Bain AUTHOR: Russ Young MD * ALL edits or amendments must be made on the electronic/computer document * SubjectiveChief Complaint:Non-ST elevation MIComments:Patient feeling well, ready to go home Portions of this section were scribed by Gisele Putnam on 04/26/20 at 1541 Objective GeneralVS/I O:24 hour I O ending at 0700: 04/26 0700 04/25 1900 Intake Total 700 240 Output Total Balance 700 240 Intake, Oral 700 240 Number 0 Bowel Movements Number 0 Incontinent Voids Number Voids 3 1 Vital Signs: Date Time Temp Pulse Resp B/P B/P Pulse O2 O2 Flow FiO2 Mean Ox Delivery Rate 04/26 0745 98.1 63 16 159/92 114.3 99 Room air 04/25 2312 98.4 77 16 137/82 100.4 97 04/25 1846 98.2 77 16 139/80 99.5 100 04/25 1648 98.1 70 16 151/83 105.7 99 Room air PATIENT WEIGHT: Weight (lb): Weight (oz): Weight (kg): 120.455 Medications:Active Meds + DC'd Last 24 HrsNifedipine 60 MG DAILY PO (DCD) Influenza Virus Vaccine 180 MCG ASDIR IM (DCD) Pneumococcal Polyvalent Vaccine 0.5 ML ASDIR IM (DCD) Amlodipine Besylate 10 MG DAILY PO (DC) Aspirin 81 MG DAILY PO (DCD) Lisinopril 40 MG DAILY PO (DCD) Atorvastatin Calcium 80 MG 2100 PO (DCD) Carvedilol 6.25 MG BID PO (DCD) Ticagrelor 90 MG Q12HR PO (DCD) Labetalol HCl 10 MG Q4H PRN PRN IV (DCD) Morphine Sulfate 2 MG Q1H PRN PRN IV (DCD) Nitroglycerin 0.4 MG Q5M PRN PRN SL (DCD) Sodium Chloride 10 ML ASDIR IV (DCD) Sodium Chloride 0 ASDIR PRN IV (DC) Physical ExamGeneral appearance: alert, awake, oriented, no acute distress, no respiratory distressHead/Eyes: atraumatic, EOMI, normocephalicENT: moist mucosal membranesNeck: no bruit/NL carotids, no JVDCardiovascular: CV assessment: regular rate and rhythm, normal heart sounds, no murmurRespiratory: clear to auscultation, no distressAbdomen: soft, non-tender, no distentionUpper extremity: UE assessment: normal temperature, no edemaLower extremity: LE assessment: normal temperature, no edemaNeuro/SOFTWARE TRAINER: alert, oriented X 3Psychiatry: normal judgment/insight, normal mood ResultsFindings/Data:Laboratory Tests 04/26 0608 Chemistry Sodium (134 - 147 mEq/L) 137 Potassium (3.4 - 5.0 mEq/L) 3.7 Chloride (100 - 108 mEq/L) 106 Carbon Dioxide (21 - 33 mEq/l) 25 Anion Gap (0 - 20) 10 BUN (7 - 18 mg/dL) 15 Creatinine (0.6 - 1.3 mg/dL) 0.9 Glomerular Filtr Rate (95 - 105) 90.1 L Glucose (70 - 110 mg/dL) 147 H Calcium (8.0 - 10.5 mg/dL) 9.3 Total Bilirubin (0.0 - 1.0 mg/dL) 1.00 AST (15 - 37 IUnit/L) 39 H ALT (30 - 65 IUnit/L) 61 Total Alk Phosphatase (20 - 125 IUnit/L) 57 Total Protein (6.4 - 8.2 g/dL) 6.8 Albumin (3.4 - 5.0 g/dL) 3.80 Laboratory Tests 04/26 0608 Hematology WBC (4.5 - 11.0 x10 3/uL) 8.3 RBC (4.00 - 5.60 x10 6/uL) 5.03 Hgb (12.5 - 16.9 g/dL) 15.7 Hct (37.5 - 50.7 %) 46.5 MCV (81.0 - 99.0 fL) 92.4 MCH (27.0 - 33.0 pg) 31.2 MCHC (33.0 - 37.0 g/dL) 33.8 RDW (11.5 - 14.5 %) 12.6 Plt Count (150 - 400 x10 3/uL) 201 MPV (7.0 - 9.0 fL) 10.4 H Neut % (Auto) (56.0 - 77.0 %) 69.3 Lymph % (Auto) (14.0 - 32.0 %) 15.6 Christian % (Auto) (4.8 - 9.0 %) 10.7 H Eos % (Auto) (0.3 - 3.7 %) 3.2 Baso % (Auto) (0.0 - 2.0 %) 0.8 Neut # (Auto) (2.0 - 7.6 x10 3/uL) 5.75 Lymph # (Auto) (1.0 - 3.8 x10 3/uL) 1.30 Christian # (Auto) (0.1 - 0.8 x10 3/uL) 0.89 H Eos # (Auto) (0.0 - 0.2 x10 3/uL) 0.27 H Baso # (Auto) (0.0 - 0.2 x10 3/uL) 0.07 Abs Immat Gran (auto) (0.00 - 0.03 x10 3/uL) 0.03 Add Manual Diff NO Immature Gran % (0.0 - 2.0 %) 0.4 Nucleated RBC % (0 - 0 %) 0.0 Nucleated RBCs # (Man) (0.0 - 0.1 x10 3/uL) 0.00 Telemetry Interpretation:Sinus Rhythm Portions of this section were scribed by Gisele Putnam on 04/26/20 at 1541 Diagnosis, Assessment Plan Free Text DxA P NotesFree Text DxA P Notes:Impression: 1. NSTEMI, status post PCI of mid LAD2. Accelerated hypertension3. Obesity Recommendations: Doing better today. Status post PCI of LAD. On optimal medical therapy for CAD and recent non-ST elevation MA. At time of my evaluation, blood pressure is very well controlled with current regimen of amlodipine, lisinopril and carvedilol. Transthoracic echocardiogram reviewed. Normal LVEF. To my surprise, anterior wall is moving well without any evidence of hypokinesia despite this non-ST elevation MA is ongoing for last 11 days. This is likely reflecting small MA since troponin bump was only up to 14 and nowtrending down. Continue current regimen. Okay to transfer to telemetry floor. Ambulate. Will reassess patient tomorrow. Possible discharge planning. Discussed with patient and RN, will follow. 04/26: Patient without any acute distress. Denies any chest pain or shortness ofbreath. Radial access site without hematoma or bruise, good pulse felt and cap re-fill noted, instructed patient he should not lift anything more than 5 poundsor soak in water for the next week, informed he could drive after tomorrow. Patient is stable from cardiac standpoint for discharge. Will need to be off work for 1 week and be on lite duty for an additional week after. Continue Lipitor 80mg Daily, Coreg 6.25mg BID, Lisinopril 40mg Daily, Procardia 60mg Daily, Brilinta 90mg Daily and Aspirin 81mg Daily. Patient will need to follow up with me in our clinic within 1-2 weeks. Portions of this section were scribed by Gisele Putnam on 04/26/20 at 1541 at 203 RPT #:[id number] OF REPORTPRProgress [id number]:41:00G.[id number] able for patient eeeeQFFSMDRPWDDIST3423-06-08Y74:31:47 [facility] 2020-04-25 16:49:00 [id number] VCwx28yR7fOVveIDGVOffONddJbLz 0zuJ7cMdi/yjWCNPeYmQexqZUy4yMtYFpC8127-93-21I23:4 9:00 [facility]Card[facility] Progress NoteREPORT#:[id number] REPORT STATUS: SignedDATE:04/25/20 TIME: 1648 PATIENT: GIOVANNI BHATT UNIT #: [id number]#: [id number] [address] [birth year] AGE: 50 SEX: M ATTEND: Jony Bain AUTHOR: Russ Young MD * ALL edits or amendments must be made on the electronic/computer document * SubjectiveChief Complaint:Non-ST elevation MIPatient reports:No: complaints, abdominal pain, chest pain, confused, cough, dizziness, fatigue,fever, headache, nausea, palpitations, shortness of breath, swelling. Comments:Feeling better today, denies any chest pain or pressure, states that he has not felt this well for last few months Telemetry: Sinus rhythm Objective GeneralVS/I O:24 hour I O ending at 0700: 04/25 0700 04/24 1900 Intake Total 720 Output Total Balance 720 Intake, Oral 720 Number Voids 3 Patient 266 lb Weight Weight Bed scale Measurement Method Vital Signs: Date Time Temp Pulse Resp B/P B/P Pulse O2 O2 Flow FiO2 Mean Ox Delivery Rate 04/25 1648 98.1 70 16 151/83 105.7 99 Room air 04/25 1501 65 18 102/52 75 100 04/25 1449 70 19 145/68 98 99 04/25 1401 67 20 150/65 93 99 04/25 1301 71 23 155/81 110 98 04/25 1200 73 23 158/84 113 98 04/25 1101 73 23 152/84 111 98 04/25 1000 67 19 139/75 100 99 04/25 0900 66 16 130/82 101 97 04/25 0802 98.1 04/25 0801 62 16 145/84 108 98 04/25 0701 64 16 134/67 94 96 04/25 0601 63 15 140/69 94 96 04/25 0501 66 16 135/73 97 95 04/25 0401 73 21 127/58 83 96 04/25 0400 98.1 04/25 0301 69 17 132/70 94 96 04/25 0201 79 24 145/76 103 98 04/25 0101 75 23 157/76 106 96 04/25 0001 80 25 158/76 109 95 04/25 0000 98.3 04/24 2301 81 25 169/99 127 99 04/24 2200 74 22 179/83 119 97 04/24 2103 75 21 181/90 127 100 04/24 2045 77 26 164/79 115 99 04/247 75 21 167/81 117 99 04/24 2000 98.3 04/24 1857 75 17 197/82 120 100 PATIENT WEIGHT: Weight (lb): Weight (oz): Weight (kg): 120.455 Medications:Active Meds + DC'd Last 24 HrsHydralazine HCl 10 MG ONCE ONE IV (DC) Influenza Virus Vaccine 180 MCG ASDIR IM Pneumococcal Polyvalent Vaccine 0.5 ML ASDIR IM Amlodipine Besylate 10 MG DAILY PO Aspirin 325 MG ONCE ONE PO (CAN) Aspirin 81 MG DAILY PO Lisinopril 40 MG DAILY PO Atorvastatin Calcium 80 MG 2100 PO Carvedilol 6.25 MG BID PO Mupirocin 1 APPLIC BID NASAL (DC) Ticagrelor 90 MG Q12HR PO Ticagrelor 0 .STK-MED ONE .ROUTE (DC) Midazolam HCl 0 .STK-MED ONE .ROUTE (DC) Fentanyl Citrate 0 .STK-MED ONE .ROUTE (DC) Heparin Sodium 0 .STK-MED ONE .ROUTE (DC) Heparin Sodium/Sodium Chloride 500 ML .STK-MED ONE IV (DC) Lidocaine HCl 0 .STK-MED ONE .ROUTE (DC) Nitroglycerin/Dextrose 250 ML .STK-MED ONE IV (DC) Clopidogrel Bisulfate 300 MG ONCE ONE PO (DC) Heparin Sodium/Sodium Chloride 1,000 ML .STK-MED ONE IV (DC) Verapamil HCl 0 .STK-MED ONE IV (DC) Labetalol HCl 10 MG Q4H PRN PRN IV Morphine Sulfate 2 MG Q1H PRN PRN IV Nitroglycerin 0.4 MG Q5M PRN PRN SL Sodium Chloride 10 ML ASDIR IV Sodium Chloride 0 ASDIR PRN IV (DC) Physical ExamGeneral appearance: alert, awake, oriented, no acute distressNeck: no bruit/NL carotids, no JVDCardiovascular: CV assessment: regular rate and rhythm, normal heart sounds, no murmurRespiratory: clear to auscultation, no distressAbdomen: soft, non-tender, no distentionUpper extremity: UE assessment: normal temperature, no edemaLower extremity: LE assessment: normal temperature, no edemaNeuro/SOFTWARE TRAINER: alert, oriented X 3Psychiatry: normal judgment/insight, normal mood ResultsFindings/Data:Laboratory Tests 04/25 04/25 04/25 04/24 0430 0310 0310 2349Chemistry Sodium (134 - 147 mEq/L) 136 Potassium (3.4 - 5.0 mEq/L) 3.8 Chloride (100 - 108 mEq/L) 105 Carbon Dioxide (21 - 33 mEq/l) 23 Anion Gap (0 - 20) 11 BUN (7 - 18 mg/dL) 10 Creatinine (0.6 - 1.3 mg/dL) 1.0 Glomerular Filtr Rate (95 - 105) 79.8 L Glucose (70 - 110 mg/dL) 154 H Hemoglobin A1c (4.8 - 6.0 %A1C) 6.2 H Calcium (8.0 - 10.5 mg/dL) 9.0 Magnesium (1.80 - 2.40 mg/dL) 2.21 Total Bilirubin (0.0 - 1.0 mg/dL) 1.20 H AST (15 - 37 IUnit/L) 65 H ALT (30 - 65 IUnit/L) 64 Total Alk Phosphatase (20 - 125 IUnit/L) 57 Troponin I (0.000 - 0.045 ng/mL) 9.373 *H 14.265 *H B-Natriuretic Peptide (0 - 100 PG/ML) 60.0 Total Protein (6.4 - 8.2 g/dL) 7.1 Albumin (3.4 - 5.0 g/dL) 3.90 Triglycerides (40 - 150 mg/dL) 170 H Cholesterol (<200 mg/dL) 179 LDL Cholesterol Measurd (0 - 100 mg/dL) 142.4 H HDL Cholesterol (32 - 72 mg/dL) 32.3 Cholesterol/HDL Ratio (3.43 - 4.97 RATIO) 5.54 H 04/24 1656 1656 Chemistry Sodium (134 - 147 mEq/L) 139 Potassium (3.4 - 5.0 mEq/L) 3.8 Chloride (100 - 108 mEq/L) 105 Carbon Dioxide (21 - 33 mEq/l) 27 Anion Gap (0 - 20) 11 BUN (7 - 18 mg/dL) 11 Creatinine (0.6 - 1.3 mg/dL) 0.9 Glomerular Filtr Rate (95 - 105) 90.1 L Glucose (70 - 110 mg/dL) 143 H Calcium (8.0 - 10.5 mg/dL) 8.7 Troponin I (0.000 - 0.045 ng/mL) 7.768 *H B-Natriuretic Peptide (0 - 100 PG/ML) 76.0 LDL Cholesterol Measurd (0 - 100 mg/dL) 149.5 H Laboratory Tests 04/24 Coagulation INR (0.8 - 1.2) 1.1 PTT ([place]) (25.0 - 39.5 Seconds) 38.9 PT Patient/Control Mix (9.3 - 12.9 SECONDS) 12.4 Activated Coag Time (74 - 137 SEC) 296 H Laboratory Tests 04/25 04/24 0310 1656 Hematology WBC (4.5 - 11.0 x10 3/uL) 9.6 9.3 RBC (4.00 - 5.60 x10 6/uL) 4.91 5.08 Hgb (12.5 - 16.9 g/dL) 15.3 15.9 Hct (37.5 - 50.7 %) 44.9 45.8 MCV (81.0 - 99.0 fL) 91.4 90.2 MCH (27.0 - 33.0 pg) 31.2 31.3 MCHC (33.0 - 37.0 g/dL) 34.1 34.7 RDW (11.5 - 14.5 %) 12.6 12.4 Plt Count (150 - 400 x10 3/uL) 204 210 MPV (7.0 - 9.0 fL) 10.5 H 10.3 H Neut % (Auto) (56.0 - 77.0 %) 73.1 69.7 Lymph % (Auto) (14.0 - 32.0 %) 14.7 18.3 Christian % (Auto) (4.8 - 9.0 %) 9.4 H 8.2 Eos % (Auto) (0.3 - 3.7 %) 1.8 2.6 Baso % (Auto) (0.0 - 2.0 %) 0.6 0.9 Neut # (Auto) (2.0 - 7.6 x10 3/uL) 6.98 6.47 Lymph # (Auto) (1.0 - 3.8 x10 3/uL) 1.40 1.70 Christian # (Auto) (0.1 - 0.8 x10 3/uL) 0.90 H 0.76 Eos # (Auto) (0.0 - 0.2 x10 3/uL) 0.17 0.24 H Baso # (Auto) (0.0 - 0.2 x10 3/uL) 0.06 0.08 Abs Immat Gran (auto) (0.00 - 0.03 x10 3/uL) 0.04 H 0.03 Add Manual Diff NO NO Immature Gran % (0.0 - 2.0 %) 0.4 0.3 Nucleated RBC % (0 - 0 %) 0.0 0.0 Nucleated RBCs # (Man) (0.0 - 0.1 x10 3/uL) 0.00 0.00 Laboratory Tests 04/25 04/25 04/24 04/24 04/24 0430 0310 2349 1656 1656Chemistry Magnesium (1.80 - 2.40 mg/dL) 2.21 Troponin I (0.000 - 0.045 ng/mL) 9.373 *H 14.265 *H 7.768 *H B-Natriuretic Peptide (0 - 100 60.0 76.0PG/ML) Diagnosis, Assessment Plan Free Text DxA P NotesFree Text DxA P Notes:Impression: 1. NSTEMI, status post PCI of mid LAD2. Accelerated hypertension3. Obesity Recommendations: Doing better today. Status post PCI of LAD. On optimal medical therapy for CAD and recent non-ST elevation MA. At time of my evaluation, blood pressure is very well controlled with current regimen of amlodipine, lisinopril and carvedilol. Transthoracic echocardiogram reviewed. Normal LVEF. To my surprise, anterior wall is moving well without any evidence of hypokinesia despite this non-ST elevation MA is ongoing for last 11 days. This is likely reflecting small MA since troponin bump was only up to 14 and nowtrending down. Continue current regimen. Okay to transfer to telemetry floor. Ambulate. Will reassess patient tomorrow. Possible discharge planning. Discussed with patient and RN, will follow. at 1653 [facility] #:[id number] OF REPORTPRProgress Pgip2175-36-18Y56:49:00G.[id number] able for patient ssgtVOWVZQYNSAZUAF9451-21-38P27:53:22 [facility] 2020-04-25 15:13:00 [id number] JiSbvclzMQxFstqBNJtjsyoazl6IM ltv4cClbLKbnXACVE5umAuqrwisnthngSc3945-62-41F37:1 [id number] [facility] [address] [address] PATIENT NAME: GIOVANNI BHATT ADMIT DATE: 04/24/20ACCOUNT NO: [id number] ROOM NO: 4423 AGE: 50 REPORT TYPE: eECHOCARDIOGRAM REPORT SEX: M ADMITTING PHYSICIAN:Jony Bain DO ATTENDING PHYSICIAN:Jony Bain DO Exam Date: 04/25/2020 09:04:00 Exam Type: Transthoracic Echocardiogram Indication:NSTEMIBP: 197/82HR: 62 Measurements Name Value Normal Range Ao root diameter (MM) 3.25 cm - LA dimension (AP) MM 3.71 cm (1.9 - 4) LA:Ao ratio (MM) 1.14 ratio (Less Than 1.5) AV cusp separation (MM) 2.14 cm - Name Value Normal Range RVIDd (AP) 2D 2.32 cm - IVSd (2D) 1.66 cm (0.6 - 1.1) LVPWd (2D) 1.52 cm (0.6 - 1.1) LVIDd (2D) 5.28 cm (3.5 - 5.6) LVIDs (2D) 3.41 cm (2.1 - 4) LV FS (2D) 35.44 % - EF Teichholz (2D) 64.43 % (50 - 90) Name Value Normal Range LA ESV SP 4CH (A/L) 71.18 ml - LA ESV SP 2CH (A/L) 62.68 ml - LA ESV BP (A/L) 69.25 ml - LA ESV SP 4CH (MOD) 68.34 ml - LA ESV SP 2CH (MOD) 60.3 ml - Name Value Normal Range MV E-wave Vmax 0.69 m/sec - MV deceleration time 202.34 msec - MV A-wave Vmax 0.61 m/sec - MV E:A ratio 1.15 ratio - Name Value Normal Range AV Vmax 1.4 m/sec - AV peak gradient 7.83 mmHg - LVOT Vmax 0.83 m/sec - LVOT peak gradient 2.77 mmHg - PATIENT NAME: GIOVANNI BHATT Name Value Normal Range TV E-wave Vmax 0.46 m/sec - Name Value Normal Range PV Vmax 0.98 m/sec - PV peak gradient 3.84 mmHg - Findings Study Quality:Study was technically difficult due to increased body habitus. Left Ventricle:The left ventricular chamber size is normal. Moderate concentric leftventricular hypertrophy is observed. The estimated ejection fraction is60-65%. The E/A ratio is 1.15. Insufficient data to evaluate the leftventricular diastolic function. Left Atrium:The left atrial chamber size is normal. Right Ventricle:The right ventricular cavity size is normal. Right Atrium:The right atrial cavity size is normal. Aortic Valve:The aortic valve structure is normal. The peak instantaneous gradientacross the aortic valve is 7.83mmHg. There is no evidence of aorticinsufficiency. Mitral Valve:The mitral valve leaflets appear normal. There is no evidence of mitralregurgitation. Tricuspid Valve:The tricuspid valve leaflets are morphologically normal. There is notricuspid regurgitation. Pulmonic Valve:The pulmonic valve appears normal. There is no evidence of pulmonicregurgitation. Pericardium:A pericardial fat pad is visualized. Aorta:The aortic root appears normal. Pulmonary Artery:The main pulmonary artery appears normal. ConclusionsPATIENT NAME: GIOVANNI BHATT 1. The left ventricular chamber size is normal.2. Moderate concentric left ventricular hypertrophy is observed.3. The estimated ejection fraction is 60-65%.4. Insufficient data to evaluate the left ventricular diastolicfunction.5. There is no evidence of mitral regurgitation.6. A pericardial fat pad is visualized.7. The aortic root appears normal. at 2123 PATIENT NAME: GIOVANNI BHATT .[id number] AVAvailable for patient awvoOZDIDCLKAPLGSJ6516-00-57D88:24:14 [facility] 2020-04-25 14:28:00 [id number] KJzG1FWJlKBP+75VU3w0nOwIBcgSK BcZRoIN/Kzz6YoFEjqMHnRPVyi5TxNuMCe7680-87-73Z79:2 8:00 [facility] ([facility])Hospitalist Progress NoteREPORT#:[id number] REPORT STATUS: SignedDATE:04/25/20 TIME: 1428 PATIENT: GIOVANNI BHATT UNIT #: [id number]#: [id number] [place] [facility] [place]DOB[place] [birth year] AGE: 50 SEX: M ATTEND: Jony Bain DOADM AUTHOR: Jony Bain DO * ALL edits or amendments must be made on the electronic/computer document * SubjectiveComments:Patient seen and examined, was taken for emergent heart catheterization yesterday with subsequent stent placement. Patient reports he is feeling much better with no new overnight events per RN. Objective GeneralVS/I O:Vital Signs: Date Time Temp Pulse Resp B/P B/P Pulse O2 O2 Flow FiO2 Mean Ox Delivery Rate 04/25 1301 71 23 155/81 110 98 04/25 1200 73 23 158/84 113 98 04/25 1101 73 23 152/84 111 98 04/25 1000 67 19 139/75 100 99 04/25 0900 66 16 130/82 101 97 04/25 0802 98.1 04/25 0801 62 16 145/84 108 98 04/25 0701 64 16 134/67 94 96 04/25 0601 63 15 140/69 94 96 04/25 0501 66 16 135/73 97 95 04/25 0401 73 21 127/58 83 96 04/25 0400 98.1 04/25 0301 69 17 132/70 94 96 04/25 0201 79 24 145/76 103 98 04/25 0101 75 23 157/76 106 96 04/25 0001 80 25 158/76 109 95 04/25 0000 98.3 04/24 2301 81 25 169/99 127 99 04/24 2200 74 22 179/83 119 97 04/24 2103 75 21 181/90 127 100 04/24 2045 77 26 164/79 115 99 04/24 2037 75 21 167/81 117 99 04/24 2000 98.3 04/24 1857 75 17 197/82 120 100 04/24 1639 98.1 78 17 174/98 123 100 Room air 24 hour I O ending at 0700: 04/25 0700 04/24 1900 Intake Total 720 Output Total Balance 720 Intake, Oral 720 Number Voids 3 Patient 120.455 kg Weight Weight Bed scale Measurement Method PATIENT WEIGHT: Weight (lb): Weight (oz): Weight (kg): 120.455 Medications:Active Meds + DC'd Last 24 HrsInfluenza Virus Vaccine 180 MCG ASDIR IM Pneumococcal Polyvalent Vaccine 0.5 ML ASDIR IM Amlodipine Besylate 10 MG DAILY PO Aspirin 325 MG ONCE ONE PO (CAN) Aspirin 81 MG DAILY PO Lisinopril 40 MG DAILY PO Atorvastatin Calcium 80 MG 2100 PO Carvedilol 6.25 MG BID PO Mupirocin 1 APPLIC BID NASAL Ticagrelor 90 MG Q12HR PO Ticagrelor 0 .STK-MED ONE .ROUTE (DC) Midazolam HCl 0 .STK-MED ONE .ROUTE (DC) Fentanyl Citrate 0 .STK-MED ONE .ROUTE (DC) Heparin Sodium 0 .STK-MED ONE .ROUTE (DC) Heparin Sodium/Sodium Chloride 500 ML .STK-MED ONE IV (DC) Lidocaine HCl 0 .STK-MED ONE .ROUTE (DC) Nitroglycerin/Dextrose 250 ML .STK-MED ONE IV (DC) Clopidogrel Bisulfate 300 MG ONCE ONE PO (DC) Heparin Sodium/Sodium Chloride 1,000 ML .STK-MED ONE IV (DC) Verapamil HCl 0 .STK-MED ONE IV (DC) Labetalol HCl 10 MG Q4H PRN PRN IV Morphine Sulfate 2 MG Q1H PRN PRN IV Nitroglycerin 0.4 MG Q5M PRN PRN SL Sodium Chloride 10 ML ASDIR IV Sodium Chloride 0 ASDIR PRN IV Physical ExamGeneral appearance: alert, awake, orientedHead/Eyes: clear cornea, EOMIENT: moist mucosal membranes, normal pharynxCardiovascular: normal heart sounds, regular rate rhythmAbdomen: non-tender, normal bowel sounds, softExtremities: moves allNeuro/SOFTWARE TRAINER: alert, oriented X 3, no motor deficits, no sensory deficitsSkin: dry, intact ResultsFindings/Data:Laboratory Tests 04/25 04/25 04/25 04/24 0430 0310 0310 2349Chemistry Sodium (134 - 147 mEq/L) 136 Potassium (3.4 - 5.0 mEq/L) 3.8 Chloride (100 - 108 mEq/L) 105 Carbon Dioxide (21 - 33 mEq/l) 23 Anion Gap (0 - 20) 11 BUN (7 - 18 mg/dL) 10 Creatinine (0.6 - 1.3 mg/dL) 1.0 Glomerular Filtr Rate (95 - 105) 79.8 L Glucose (70 - 110 mg/dL) 154 H Hemoglobin A1c (4.8 - 6.0 %A1C) 6.2 H Calcium (8.0 - 10.5 mg/dL) 9.0 Magnesium (1.80 - 2.40 mg/dL) 2.21 Total Bilirubin (0.0 - 1.0 mg/dL) 1.20 H AST (15 - 37 IUnit/L) 65 H ALT (30 - 65 IUnit/L) 64 Total Alk Phosphatase (20 - 125 IUnit/L) 57 Troponin I (0.000 - 0.045 ng/mL) 9.373 *H 14.265 *H B-Natriuretic Peptide (0 - 100 PG/ML) 60.0 Total Protein (6.4 - 8.2 g/dL) 7.1 Albumin (3.4 - 5.0 g/dL) 3.90 Triglycerides (40 - 150 mg/dL) 170 H Cholesterol (<200 mg/dL) 179 LDL Cholesterol Measurd (0 - 100 mg/dL) 142.4 H HDL Cholesterol (32 - 72 mg/dL) 32.3 Cholesterol/HDL Ratio (3.43 - 4.97 RATIO) 5.54 H 24 04/24 04/24 1656 1656 1656 Chemistry Sodium (134 - 147 mEq/L) 139 Potassium (3.4 - 5.0 mEq/L) 3.8 Chloride (100 - 108 mEq/L) 105 Carbon Dioxide (21 - 33 mEq/l) 27 Anion Gap (0 - 20) 11 BUN (7 - 18 mg/dL) 11 Creatinine (0.6 - 1.3 mg/dL) 0.9 Glomerular Filtr Rate (95 - 105) 90.1 L Glucose (70 - 110 mg/dL) 143 H Calcium (8.0 - 10.5 mg/dL) 8.7 Troponin I (0.000 - 0.045 ng/mL) 7.768 *H B-Natriuretic Peptide (0 - 100 PG/ML) 76.0 LDL Cholesterol Measurd (0 - 100 mg/dL) 149.5 H Laboratory Tests 04/24 1656 Coagulation INR (0.8 - 1.2) 1.1 PTT (Gallo) (25.0 - 39.5 Seconds) 38.9 PT Patient/Control Mix (9.3 - 12.9 SECONDS) 12.4 Activated Coag Time (74 - 137 SEC) 296 H Laboratory Tests 04/250 1656 Hematology WBC (4.5 - 11.0 x10 3/uL) 9.6 9.3 RBC (4.00 - 5.60 x10 6/uL) 4.91 5.08 Hgb (12.5 - 16.9 g/dL) 15.3 15.9 Hct (37.5 - 50.7 %) 44.9 45.8 MCV (81.0 - 99.0 fL) 91.4 90.2 MCH (27.0 - 33.0 pg) 31.2 31.3 MCHC (33.0 - 37.0 g/dL) 34.1 34.7 RDW (11.5 - 14.5 %) 12.6 12.4 Plt Count (150 - 400 x10 3/uL) 204 210 MPV (7.0 - 9.0 fL) 10.5 H 10.3 H Neut % (Auto) (56.0 - 77.0 %) 73.1 69.7 Lymph % (Auto) (14.0 - 32.0 %) 14.7 18.3 Christian % (Auto) (4.8 - 9.0 %) 9.4 H 8.2 Eos % (Auto) (0.3 - 3.7 %) 1.8 2.6 Baso % (Auto) (0.0 - 2.0 %) 0.6 0.9 Neut # (Auto) (2.0 - 7.6 x10 3/uL) 6.98 6.47 Lymph # (Auto) (1.0 - 3.8 x10 3/uL) 1.40 1.70 Christian # (Auto) (0.1 - 0.8 x10 3/uL) 0.90 H 0.76 Eos # (Auto) (0.0 - 0.2 x10 3/uL) 0.17 0.24 H Baso # (Auto) (0.0 - 0.2 x10 3/uL) 0.06 0.08 Abs Immat Gran (auto) (0.00 - 0.03 x10 3/uL) 0.04 H 0.03 Add Manual Diff NO NO Immature Gran % (0.0 - 2.0 %) 0.4 0.3 Nucleated RBC % (0 - 0 %) 0.0 0.0 Nucleated RBCs # (Man) (0.0 - 0.1 x10 3/uL) 0.00 0.00 Diagnosis, Assessment Plan Free Text DxA P NotesFree text DxA P notes:Zbaqtniihnk-FQMOFA-Xzkmqtkaxpvx rovszpc-Apyjntg-Rkxveyfszcywod-Questionable colitis Plan-Plan for emergent left heart catheterization tonight per cardiology-Questionable bowel wall thickening of the sigmoid colon on CT, denies any lowerabdominal pain, will continue to monitor, will work-up post emergent heart catheterization if persistent-Monitor on telemetry-Received full dose Lovenox from ED, hold on additional Lovenox given plans for heart catheterization-Nitroglycerin/morphine as needed-Daily aspirin-Continue lisinopril and amlodipine home wyzyvapfxrg-Gtblizhovptrzt-EDA prophylaxis: SCDs, received full dose Lovenox x1 in ED on 04/24 at 14:02 04/25/2020Status post Successful mechanical thrombectomy using CATRx coronary mechanical thrombectomy catheter followed by primary PCI using 3.5 x 18 mm resolute Beatrice drug-eluting stent on 04/24Transfer to CVN 1 with telemetry order placedDual antiplatelet therapy with aspirin and BrilintaLipitor 80, LDL of 149Continue home lisinopril and NorvascProvided education on the station of tobacco, compliance with CPAP, monitoring blood sugarsNoted A1c of 6.2 at 1430 RPT #:[id number] OF REPORTPRProgress Qtlv4152-63-87F29:28:00G.UYOG65870860-1227VVFlvfn able for patient djjzMLNTHCORYFJFBZ1689-56-21Q30:30:50 [facility] 2020-04-25 11:46:00 KWbzqyzhvve24181951v oo28EZHn0Dp1K4OYEa9h7PVdcsj9y V4vqdRzyBeAjFZjOMFTPcdSPIAhBat3plz2060-60-20Y27:4 6:[id number] [place] [id number] PATIENT NAME: GIOVANNI BHATT ADMIT DATE: 04/24/20ACCOUNT NO: [id number] ROOM NO: 4423 AGE: 50 REPORT TYPE: eELECTROCARDIOGRAM REPORT SEX: M ADMITTING PHYSICIAN:Jony Bain DO ATTENDING PHYSICIAN:Jony Bain DO Order:[id number] Reason : POST STENT Test Date/Time Stamp:TueApr 25 2020 11:46:35Blood Pressure : / mmHGVent. Rate : 069 BPM Atrial Rate : 069 BPM P-R Int : 146 ms QRS Dur : 108 ms QT Int : 390 ms P-R-T Axes : 029 019 078 degrees QTc Int : 417 ms Normal sinus rhythmSeptal infarct (cited on or before 24-APR-2020)T wave abnormality, consider lateral ischemiaAbnormal ECGWhen compared with ECG of 24-APR-2020 23:18,Significant changes have occurredConfirmed by PRESTON GÓMEZ, RUSS ([id number]) on 04/25/2020 6:32:39 PM Referred By: Jony Bain Confirmed by:DAVE YOUNG MD at 1832 PATIENT NAME: GIOVANNI BHATT .[id number] AVAvailable for patient blryMHEAIRKZERQLTW4006-63-73O70:33:03 [facility] 2020-04-24 23:18:00 ZQktghtvdls64895439w UG29sMyuujE18XZugPfayq8ZOD/YJ XWU5ELRs5LDj/KhlQSnozqF2kUXDLl4pTk8500-87-29R02:1 8:[id number] [address] PATIENT NAME: GIOVANNI BHATT ADMIT DATE: 04/24/20ACCOUNT NO: [id number] ROOM NO: G.4423 AGE: 50 REPORT TYPE: eELECTROCARDIOGRAM REPORT SEX: M ADMITTING PHYSICIAN:Jony Bain DO ATTENDING PHYSICIAN:Jony Bain DO Order:[id number] Reason : CP Test Date/Time Stamp:TueApr 24 2020 23:18:04Blood Pressure : / mmHGVent. Rate : 084 BPM Atrial Rate : 084 BPM P-R Int : 148 ms QRS Dur : 100 ms QT Int : 366 ms P-R-T Axes : 032 -34 073 degrees QTc Int : 432 ms Normal sinus rhythmLeft axis deviationMinimal voltage criteria for LVH, may be normal variantAnterolateral infarct , age undeterminedAbnormal ECGWhen compared with ECG of 24-APR-2020 16:32,Significant changes have occurredConfirmed by RUSS YOUNG MD ([id number]) on 04/25/2020 6:32:25 PM Referred By: Self Referred Confirmed by:DAVE YOUNG MD at 1832 PATIENT NAME: GIOVANNI BHATT .[id number] AVAvailable for patient ztwrZSBVKRGMJTHXUU0003-40-82T89:32:52 [facility] 2020-04-24 20:31:00 CKxzpbxocin03181521R Tj5nr0I8b4C/fZYde+Xr8rEeWLIXz 14fZlcLaVWuCEyitM+Bs73UHFJsadVWFAo1202-56-80J12:3 1:00 [facility] ([facility])Cath Post Proc - BriefREPORT#:[id number] REPORT STATUS: SignedDATE:04/24/20 TIME: 2030 PATIENT: GIOVANNI BHATT UNIT #: [id number]#: [id number] ROOM/BED: 3301-1DOB: [birth year] AGE: 50 SEX: M ATTEND: Jony Bain DOADM AUTHOR: Russ Young MD * ALL edits or amendments must be made on the electronic/computer document * Pre-Procedure Presentation 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 Jocelyn Rogersistant(s): noneFindings:TECHNIQUE: Informed consent was obtained from the patient after explaining the benefits and risks of the procedure. The patient was brought to the Cardiac Catheterization suite and prepped and draped in usual sterile fashion. Time-outwas obtained to verify the patient as well as type and site of the procedure. The patient was given fentanyl and Versed for sedation. Approximately, 1 mL of 1% Xylocaine was used to anesthetize the area over the right radial artery. Using modified Seldinger technique, right radial artery was accessed and a 6-Upper Sorbian Terumo sheath was inserted. Following, a radial cocktail containing 2.5 mg of verapamil, 200 mcg of nitroglycerin and 3000 units of heparin was given intra-arterially. Following, left heart catheterization and selective coronary angiography was performed using 5-Upper Sorbian Lehigh catheter. Following careful review of angiographic findings, we proceed with percutaneous coronary intervention. Following, equipments were removed and hemostasis was achieved with TR band. LEFT HEART CATHETERIZATION: AO: 147/88 mmHg with mean of 109 mmHgLV: 151/-19 mmhg with EDP of 24 mmHgLV gram: Not performed SELECTIVE CORONARY ANGIOGRAPHY: 1. Left main: Large caliber and trifurcates in LAD, LCx and Ramus. No angiographic disease. 2. LAD: Large caliber vessel. Proximal segment has 30-40% stenosis. Thrombotic occlusion of 100% mid LAD after large size 1st septal regulatory administrator. 3. Ramus Intermediate: Large caliber vessel and has no angiographic disease 4. LCx: Medium caliber codominant vessel and gives rise to small to medium caliber OM1. LCx then continue in AV groove branch and gives rise to small caliber PL and PDA. 5. RCA: Large-caliber codominant vessel. Distally gives rise to medium caliberPDA and PL branch. No angiographic disease in RCA and its branches. PERCUTANEOUS CORONARY INTERVENTION: IV heparin was used for systemic anticoagulation and it was verified therapeuticby ACT. The patient received aspirin and ticagrelor for antiplatelet therapy. A 6 Fr XB 3.5 guide catheter was used to engage left coronary system. A 0.014 inch Run-through wire was advanced and lesion in the mid segment of the LAD was crossed. The tip of the wire was positioned in the distal segment of LAD. Mechanical thrombectomy was performed using CATRx Penumbra mechanical thrombectomy catheter. Single pass was made. Post angiogram revealed MATTHEW-3 flow. Initial predilatation was performed using 2.0 x 12 mm emerge balloon. The balloon was inflated up to 10 fred x 1. Post angiogram revealed good result. At this point, we advanced 3.5 x 18 mm resolute beatrice drug-eluting stent. The stent was deployed at 16 fred followed by 18 fred. Post angiogram revealed well apposed stent. IC nitro 200 mcg was given. Post angiogram revealed very good result without any residual stenosis. MATTHEW-3 flow was noted. No dissection andperforation was noted. The patient overall tolerated procedure well. CONCLUSION: 1. Patent left main coronary with no angiographic disease.2. 30 to 40% stenosis in proximal segment of LAD followed by 100% thrombotic occlusion.3. Patent ramus intermediate artery without angiographic disease.4. Patent codominant LCx without angiographic disease.5. Patent codominant RCA without angiographic disease.6. LVEDP 24 mmHg.7. Successful mechanical thrombectomy using CATRx coronary mechanical thrombectomy catheter followed by primary PCI using 3.5 x 18 mm resolute Beatrice drug-eluting stent. RECOMMENDATIONS: Continue optimal medical therapy for acute coronary syndrome/non-ST elevation MA. Refer patient for cardiac rehabilitation.Complications: noneAnesthesia type: local, moderate sedationMod. sedation provided by me: yesIndependent trained observer present monitored pt's resp. to the sedation noEstimated blood loss in ml's: 15Specimens removed/altered: none at 2041 [facility] #:[id number] OF REPORTPNProcedure yujc3205-01-13B10:31:00G.INCC90916179-9659OXZfdll able for patient xkrjDKNXSMLDVHRTBO2345-11-40O26:41:29 [facility] 2020-04-24 20:24:00 [id number] pIIL+Q084zpCxQnbB6xS1sdyltvtF 11o3iJMiHdqEkYYHgxUqv4vat31lTi7b9j2015-77-04N46:2 4:00 [facility]woodCardiology ConsultationREPORT#:[id number] REPORT STATUS: SignedDATE:04/24/20 TIME: 2023 PATIENT: GIOVANNI BHATT UNIT #: [id number]#: [id number] [address] AGE: 50 SEX: M ATTEND: Jony Bain DOADM AUTHOR: Russ Young MD * ALL edits or amendments must be made on the electronic/computer document * History of Present Illness HPIRequesting Clinician: Dr. Tucker for consult:Chest pain, non-ST elevation MIChief complaint:Chest painHPI:Mr. Giovanni Bhatt is a 50 y/o CM, who was transferred from in [facility]. Patient having burning chest pain upto 3-10/10 in severity and gets worse with exertion. Patient noted to have elevated troponin at and doubled in [facility] ER. Patient continue to have chest pain. History - Adult longitudinalAdditional medical history:HypertensionAdditional surgical history:DeniesAdditional family history:Mother with coronary artery disease at age 40Alcohol use: Denies EtOH useDrug use: Denies recreational drugsSmoking status for patients 13 years old or older: Former SmokerAdditional social history:Dips 1 can of tobacco a day for over 25 years, social alcohol use, denies any recreational drug use, drinks 3 cups of coffee a day, reports more stress at work as a repair technicianAllergies:Coded Allergies:No Known Allergies (04/24/20) Review of SystemsAll systems rev neg: except as marked Objective GeneralVS/I O:Vital Signs: Date Time Temp Pulse Resp B/P B/P Pulse O2 O2 Flow FiO2 Mean Ox Delivery Rate 04/24 1857 75 17 197/82 120 100 04/24 1639 98.1 78 17 174/98 123 100 Room air PATIENT WEIGHT: Weight (lb): Weight (oz): Weight (kg): 120.455 Physical ExamGeneral appearance: alert, awake, oriented, diaphoretic Neck: no JVDCardiovascular: CV assessment: regular rate and rhythm, normal heart sounds, no murmurRespiratory: clear to auscultation, no distressAbdomen: soft, non-tenderUpper extremity: UE assessment: no edemaLower extremity: LE assessment: no edemaNeuro/SOFTWARE TRAINER: alert, oriented X 3Psychiatry: normal judgment/insight, normal mood ResultsFindings/Data:Laboratory Tests 04/24 1656 1656 Chemistry Sodium (134 - 147 mEq/L) 139 Potassium (3.4 - 5.0 mEq/L) 3.8 Chloride (100 - 108 mEq/L) 105 Carbon Dioxide (21 - 33 mEq/l) 27 Anion Gap (0 - 20) 11 BUN (7 - 18 mg/dL) 11 Creatinine (0.6 - 1.3 mg/dL) 0.9 Glomerular Filtr Rate (95 - 105) 90.1 L Glucose (70 - 110 mg/dL) 143 H Calcium (8.0 - 10.5 mg/dL) 8.7 Troponin I (0.000 - 0.045 ng/mL) 7.768 *H B-Natriuretic Peptide (0 - 100 PG/ML) 76.0 LDL Cholesterol Measurd (0 - 100 mg/dL) 149.5 H Laboratory Tests 04/24 Coagulation INR (0.8 - 1.2) 1.1 PTT (Gallo) (25.0 - 39.5 Seconds) 38.9 PT Patient/Control Mix (9.3 - 12.9 SECONDS) 12.4 Activated Coag Time (74 - 137 SEC) 296 H Laboratory Tests 04/24 1656 Hematology WBC (4.5 - 11.0 x10 3/uL) 9.3 RBC (4.00 - 5.60 x10 6/uL) 5.08 Hgb (12.5 - 16.9 g/dL) 15.9 Hct (37.5 - 50.7 %) 45.8 MCV (81.0 - 99.0 fL) 90.2 MCH (27.0 - 33.0 pg) 31.3 MCHC (33.0 - 37.0 g/dL) 34.7 RDW (11.5 - 14.5 %) 12.4 Plt Count (150 - 400 x10 3/uL) 210 MPV (7.0 - 9.0 fL) 10.3 H Neut % (Auto) (56.0 - 77.0 %) 69.7 Lymph % (Auto) (14.0 - 32.0 %) 18.3 Christian % (Auto) (4.8 - 9.0 %) 8.2 Eos % (Auto) (0.3 - 3.7 %) 2.6 Baso % (Auto) (0.0 - 2.0 %) 0.9 Neut # (Auto) (2.0 - 7.6 x10 3/uL) 6.47 Lymph # (Auto) (1.0 - 3.8 x10 3/uL) 1.70 Christian # (Auto) (0.1 - 0.8 x10 3/uL) 0.76 Eos # (Auto) (0.0 - 0.2 x10 3/uL) 0.24 H Baso # (Auto) (0.0 - 0.2 x10 3/uL) 0.08 Abs Immat Gran (auto) (0.00 - 0.03 x10 3/uL) 0.03 Add Manual Diff NO Immature Gran % (0.0 - 2.0 %) 0.3 Nucleated RBC % (0 - 0 %) 0.0 Nucleated RBCs # (Man) (0.0 - 0.1 x10 3/uL) 0.00 Laboratory Tests 04/24 04/24 1656 1656 Chemistry Troponin I (0.000 - 0.045 ng/mL) 7.768 *H B-Natriuretic Peptide (0 - 100 PG/ML) 76.0 EKG Interpretation: normal sinus rhythm, PRWP, abnormal ST segment in precordialleadsTelemetry Interpretation:SR Diagnosis, Assessment Plan Free Text DxA P NotesFree Text DxA P Notes:Impression: 1. NSTEMI2. Hypertension3. Obesity Recommendations: 1. Ongoing chest pain/pressure with rise in troponin2. Emergent cardiac cath for ongoing chest pain despite being on AC and antiplatelet therapy3. Echo4. Further management based on findings of cath Thank you for kind referral, discussed with patient, will follow. at 2030 RPT #:[id number] OF REPORTLLPuuieanneucf8057-92-31S52:24:00G.PDOC2 [id number] for patient uvajRXUIZBCKOWFMFQ1773-03-70T46:31:27 [facility] 2020-04-24 18:28:00 YUpfglhkbnc95697958I T77e6NWvqseMd2t8wfnwQIt6tMFFD pnarHZaYx1LDRg0YAyIwB5r7/g+i836KRP2183-87-87T27:2 8:00 [facility] ([facility])Hospitalist History PhysicalREPORT#:[id number] REPORT STATUS: SignedDATE:04/24/20 TIME: 1827 PATIENT: GIOVANNI BHATT UNIT #: [id number]#: [id number] [address] AGE: 50 SEX: M ATTEND: Jony Bain DOADM AUTHOR: Jony Bain DO * ALL edits or amendments must be made on the electronic/computer document * History of Present Illness HPIChief complaint:IM having chest pain, patient transferred from [place] ER for NSTEMIHPI:Giovanni is a 50-year-old male with a past medical history of hypertension who presents the hospital as a [facility] emergency department[facility] [place], [place] with a chief complaint of worsening chest pain. The patient reports he has been having constant mid epigastric chest/abdominal pain over the last 11 days. He thought it was more reflux related but on second thought, he states the pain would always worsen after he climbed a flight of stairs to get to work. He states after exertion sometimes his pain will be a 10out of 10 in severity. He reports he is been trying lqyz-goz-gydvfqt antacids such as Maalox and Pepcid to minimal effect. He states the pain continue to persist so he went to the emergency department. He reports he had a negative catheterization about 12 years ago. He reports a family history with his motherwith MA at age 40. He does dip tobacco 1 can a day for over 25 years. He reports compliance with his home blood pressure medications aside from amlodipine. Patient currently reports ongoing chest discomfort about a 2 out of10 in severity. He denies any fevers, chills, shortness of breath, nausea, vomiting, abdominal pain. He denies any bowel or bladder complaints. Patient was [facility] full [facility]. 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 Medication/Allergy-Vaccine HxAllergies:Coded Allergies:No Known Allergies (04/24/20) Review of Systems Free Text ROS NotesFree Text ROS Notes:14 point review of systems reviewed and negative unless otherwise noted in HPI Physical ExamVS/I O:Vital Signs Date Temp Pulse Resp B/P B/P Mean Pulse Ox FiO2 04/24 98.1 78 17 174/98 123 100 Last Documented: Result Date Time Pulse Ox 100 04/24 1639 B/P 174/98 04/24 1639 B/P Mean 123 04/24 1639 O2 Delivery Room air 04/24 1639 Temp 98.1 04/24 1639 Pulse 78 04/24 1639 Resp 17 04/24 1639 Patient Weight and BMI Weight (kg): 120.455 BMI: 38.1 General appearance: alert, awake, oriented, diaphoretic Head/Eyes: clear cornea, EOMIENT: moist mucosal membranes, normal pharynxCardiovascular: normal heart sounds, regular rate rhythmRespiratory: aerating well, clear to auscultation, symmetric expansionAbdomen: non-tender, normal bowel sounds, softExtremities: moves allNeuro/SOFTWARE TRAINER: alert, oriented X 3, no motor deficits, no sensory deficitsSkin: dry, intact ResultsFindings/Data:Laboratory Tests: 04/24 04/24 04/24 1656 1656 1656 Chemistry Sodium (134 - 147 mEq/L) 139 Potassium (3.4 - 5.0 mEq/L) 3.8 Chloride (100 - 108 mEq/L) 105 Carbon Dioxide (21 - 33 mEq/l) 27 Anion Gap (0 - 20) 11 BUN (7 - 18 mg/dL) 11 Creatinine (0.6 - 1.3 mg/dL) 0.9 Glomerular Filtr Rate (95 - 105) 90.1 L Glucose (70 - 110 mg/dL) 143 H Calcium (8.0 - 10.5 mg/dL) 8.7 Troponin I (0.000 - 0.045 ng/mL) 7.768 *H B-Natriuretic Peptide (0 - 100 PG/ML) 76.0 LDL Cholesterol Measurd (0 - 100 mg/dL) 149.5 H Coagulation INR (0.8 - 1.2) 1.1 PTT (Gallo) (25.0 - 39.5 Seconds) 38.9 PT Patient/Control Mix (9.3 - 12.9 SECONDS) 12.4 Hematology WBC (4.5 - 11.0 x10 3/uL) 9.3 RBC (4.00 - 5.60 x10 6/uL) 5.08 Hgb (12.5 - 16.9 g/dL) 15.9 Hct (37.5 - 50.7 %) 45.8 MCV (81.0 - 99.0 fL) 90.2 MCH (27.0 - 33.0 pg) 31.3 MCHC (33.0 - 37.0 g/dL) 34.7 RDW (11.5 - 14.5 %) 12.4 Plt Count (150 - 400 x10 3/uL) 210 MPV (7.0 - 9.0 fL) 10.3 H Neut % (Auto) (56.0 - 77.0 %) 69.7 Lymph % (Auto) (14.0 - 32.0 %) 18.3 Christian % (Auto) (4.8 - 9.0 %) 8.2 Eos % (Auto) (0.3 - 3.7 %) 2.6 Baso % (Auto) (0.0 - 2.0 %) 0.9 Neut # (Auto) (2.0 - 7.6 x10 3/uL) 6.47 Lymph # (Auto) (1.0 - 3.8 x10 3/uL) 1.70 Christian # (Auto) (0.1 - 0.8 x10 3/uL) 0.76 Eos # (Auto) (0.0 - 0.2 x10 3/uL) 0.24 H Baso # (Auto) (0.0 - 0.2 x10 3/uL) 0.08 Abs Immat Gran (auto) (0.00 - 0.03 x10 3/uL) 0.03 Add Manual Diff NO Immature Gran % (0.0 - 2.0 %) 0.3 Nucleated RBC % (0 - 0 %) 0.0 Nucleated RBCs # (Man) (0.0 - 0.1 x10 3/uL) 0.00 Laboratory Tests 04/24/20 1656:[Embedded Image Not Available] Diagnosis, Assessment PlanFree Text A P:Xjzwsizfgpz-SFIEYQ-Nkygvjqikkpg mcuqlzn-Kexzkok-Ogcjcwfzlfsfjq-Questionable colitis Plan-Plan for emergent left heart catheterization tonight per cardiology-Questionable bowel wall thickening of the sigmoid colon on CT, denies any lowerabdominal pain, will continue to monitor, will work-up post emergent heart catheterization if persistent-Monitor on telemetry-Received full dose Lovenox from ED, hold on additional Lovenox given plans for heart catheterization-Nitroglycerin/morphine as needed-Daily aspirin-Continue lisinopril and amlodipine home tfvrdpnqegk-Ptwicqaxqfjowi-FMM prophylaxis: SCDs, received full dose Lovenox x1 in ED on 04/24 at 14:02 at 1945 RPT #:[id number] OF REPORTHPHistory and physical [id number]:28:[id number] AVAvailable for patient [id number]:46:16 [facility] 2020-04-24 16:45:00 [id number]:4 5:00 [facility] ([facility] PROVIDER REPORTREPORT#:[id number] REPORT STATUS: SignedDATE:04/24/20 TIME: 1645 PATIENT: GIOVANNI BHATT UNIT #: [id number]#: [id number] [address] 50 SEX: M PCP PHYS: Undefined ProviderSERVICE AUTHOR: Isidoro Monroy DO * ALL edits or amendments must be made on the electronic/computer document * HPI-Chest Pain 40 and Over GeneralInitial Greet Date/Time 04/24/20 1627 PresentationChief Complaint Chest pain, NSTEMISudden in Onset? No Free Text HPI NotesFree Text HPI [id number]-[id number]-con male history of hypertension transfer from [facility] to this emergency room for further evaluation and management of an STEMI. Patient reports he has been having intermittent mid epigastric abdominal pain and chest discomfort x11 days. Patient reports chest discomfort is mild and radiates to his left shoulder. Patient reports he has been taking Maalox and Pepcid with a thought that he was gastritis. Patient reports pain has never went away. Patient reported he had stress test and cardiac cath done few years ago by Dr. Esteves wereall negative. Patient reports symptom is improved but still have mild discomfort. Patient have received aspirin and Lovenox at the transfer facility prior to arrival. Also have negative test for Covid. Risk-Chest Pain 40 and Over Risk Stratification)( Coronary Artery Disease Risk factors reviewed Review of Systems ROS StatementsAll systems rev neg except as marked. Focused Review of SystemsCardiovascularReports: Chest pain. GIReports: Abdominal pain. Past Medical History - AdultStated Complaint TRANSFER - ELEVATED TROPONINAllergiesCoded Allergies:No Known Allergies (04/24/20) Home MedicationsReported MedicationsLISINOPRIL (ZESTRIL) 40 MG PO DAILY HYDROCHLOROTHIAZIDE (HYDRODIURIL) 25 MG PO DAILY NEBIVOLOL (BYSTOLIC) 10 MG PO DAILY amLODIPine (NORVASC) 10 MG PO DAILY Smoking status for patients 13 years old or older: Former Smoker Physical Exam Vital SignsVital SignsFirst Documented: Result Date Time Pulse Ox 100 04/24 1639 B/P 174/98 04/24 1639 B/P Mean 123 04/24 1639 O2 Delivery Room air 04/24 1639 Temp 36.7 04/24 1639 Pulse 78 04/24 1639 Resp 17 04/24 1639 Last Documented: Result Date Time Pulse Ox 100 04/24 163 B/P 174/98 04/24 163 B/P Mean 123 04/24 163 O2 Delivery Room air 04/24 1639 Temp 36.7 04/24 1639 Pulse 78 04/24 1639 Resp 17 04/24 163 Review of Vital Signs Reviewed Free Text PE NotesFree Text PE NotesGeneral/Const: General/Const Awake, Alert, No acute distress, CooperativeMS Head: Head Atraumatic, NormocephalicEyes: Eyes PERRL, EOMI, Conjunctiva NLEars/Nose/Throat: Ears/Nose/Throat Airway patent, Mucous membranes moistMS Neck: Neck Supple, Full range of motionResp/Chest: Respiratory/Chest Breath sounds NL, Breath sounds = bilat, No respiratory distress, No rales, No rhonchi, No wheezingCardiovascular: Cardiovascular Heart rate NL, Regular rhythm, Heart sounds NLAbdomen/GI: Abdomen/GI Soft, Non-tender, No guarding, No rebound, BS normoactive, No distentionSkin: Skin Color NL, No rash, Warm, DryNeurologic: Neurologic Oriented X3, Speech NL Interpretation Diagnostics Lab Results InterpretationConsiderations Independ review imaging, Reviewed prior recordsResultsLaboratory Tests 04/24/20 165:[Embedded Image Not Available]Laboratory Tests: 04/24 1656 Chemistry Sodium (134 - 147 mEq/L) 139 Potassium (3.4 - 5.0 mEq/L) 3.8 Chloride (100 - 108 mEq/L) 105 Carbon Dioxide (21 - 33 mEq/l) 27 Anion Gap (0 - 20) 11 BUN (7 - 18 mg/dL) 11 Creatinine (0.6 - 1.3 mg/dL) 0.9 Glomerular Filtr Rate (95 - 105) 90.1 L Glucose (70 - 110 mg/dL) 143 H Calcium (8.0 - 10.5 mg/dL) 8.7 Troponin I (0.000 - 0.045 ng/mL) 7.768 *H B-Natriuretic Peptide (0 - 100 PG/ML) 76.0 LDL Cholesterol Measurd (0 - 100 mg/dL) 149.5 H Coagulation INR (0.8 - 1.2) 1.1 PTT (Gallo) (25.0 - 39.5 Seconds) 38.9 PT Patient/Control Mix (9.3 - 12.9 SECONDS) 12.4 Hematology WBC (4.5 - 11.0 x10 3/uL) 9.3 RBC (4.00 - 5.60 x10 6/uL) 5.08 Hgb (12.5 - 16.9 g/dL) 15.9 Hct (37.5 - 50.7 %) 45.8 MCV (81.0 - 99.0 fL) 90.2 MCH (27.0 - 33.0 pg) 31.3 MCHC (33.0 - 37.0 g/dL) 34.7 RDW (11.5 - 14.5 %) 12.4 Plt Count (150 - 400 x10 3/uL) 210 MPV (7.0 - 9.0 fL) 10.3 H Neut % (Auto) (56.0 - 77.0 %) 69.7 Lymph % (Auto) (14.0 - 32.0 %) 18.3 Christian % (Auto) (4.8 - 9.0 %) 8.2 Eos % (Auto) (0.3 - 3.7 %) 2.6 Baso % (Auto) (0.0 - 2.0 %) 0.9 Neut # (Auto) (2.0 - 7.6 x10 3/uL) 6.47 Lymph # (Auto) (1.0 - 3.8 x10 3/uL) 1.70 Christian # (Auto) (0.1 - 0.8 x10 3/uL) 0.76 Eos # (Auto) (0.0 - 0.2 x10 3/uL) 0.24 H Baso # (Auto) (0.0 - 0.2 x10 3/uL) 0.08 Abs Immat Gran (auto) (0.00 - 0.03 x10 3/uL) 0.03 Add Manual Diff NO Immature Gran % (0.0 - 2.0 %) 0.3 Nucleated RBC % (0 - 0 %) 0.0 Nucleated RBCs # (Man) (0.0 - 0.1 x10 3/uL) 0.00 ECG #1 InterpretationText/Dict Note12:32 PM normal sinus rhythm at 81 bpm, normal axis, Q wave in lead III, nonspecific T wave abnormality, no STEMI. Interpreted by ED physician. No changes from EKG done by transfer facility. Re-Evaluation MDM Re-Evaluation/Progress #1Text/Dict NotePatient's repeat troponin is increasing. Dr. Young took over from Dr. Esteves and he requested that the patient need to be sent for Cardiac Epic Trainer. Cardiac CathLab activated. Discussed plan with patient need for cardiac cath. He understand and agree with plan of care.Time of Re-Eval 1801 ED CourseMedication(s) OrderedMedication(s) Ordered:Central Nervous System Agents Sig/Cherelle Start time Last Medication Dose Route Stop Time Status Admin Aspirin 325 MG ONCE ONE 04/25 0900 CAN PO 04/25 0901 Electrolytic, Caloric, And Naomie Sig/Cherelle Start time Last Medication Dose Route Stop Time Status Admin Sodium Chloride 0 ASDIR PRN 04/24 1645 DC IV 04/25 1542 ConsultationConsultation Referral/Consult Name Kam Esteves MD C[employer]on Grader Called Cardiology Requested Call Time 1653 Requested Call Date 04/24/20 Call Returned Call returned Call Returned Time 165 Call Returned Date 04/24/20 C[employer]on Grader Will see patient Patient Discharge Departure Vital Signs/ConditionVital SignsFirst Documented: Result Date Time Pulse Ox 100 04/24 1639 B/P 174/98 04/24 1639 B/P Mean 123 04/24 1639 O2 Delivery Room air 04/24 1639 Temp 36.7 04/24 1639 Pulse 78 04/24 1639 Resp 17 04/24 1639 Last Documented: Result Date Time Pulse Ox 100 04/24 1639 B/P 174/98 04/24 1639 B/P Mean 123 04/24 1639 O2 Delivery Room air 04/24 1639 Temp 36.7 04/24 1639 Pulse 78 04/24 1639 Resp 17 04/24 1639 All vital signs available at the time of this entry have been reviewed. Clinical ImpressionClinical ImpressionPrimary Impression: NSTEMI (non-ST elevated myocardial infarction) Disposition DecisionAdmit Admit Physician Name Jony Bain DO Admit Physician Hospitalist Request Time 1651 Request Date 04/24/20 )( Admission Accepts Yes )( Accepted Time 165 )( Accepted Date 04/24/20 Call Information will see patient Discharge/Care PlanCounseled Regarding Diagnosis, Lab results, Imaging studies, Need for admission Critical CareTime Spent (minutes): 35Services Performed Patient management by me, Time spent at bedside, Reviewing test results, Reviewing imaging, Discussing patient care, Documentation in recordSeparately billable procedures excluded from time. at 1728RPT #:[id number] OF REPORTMemorial Hermann [facility] department [id number]:45:[id number] ilable for patient [id number]:28:35 HCACL
[2023-06-11 22:48] LABS: Absolute Basophils 0.1 K/uL (0-0.5); Absolute Eosinophils 0.3 K/uL (0-0.5); Absolute Lymphocytes (CBC) 2.2 K/uL (0.7-4.9); Absolute Monocytes 0.9 K/uL (0.1-1.3); Absolute Neutrophil 6.3 K/uL (1.8-8.0); Basophils % 1.1 % (0-1.3); Eosinophils % 2.7 % (0-4.4); Hematocrit 40.6 % (39.6-49.0); Hemoglobin 14.5 g/dL (13.6-17.9); Lymphocytes % 22.5 % (15.3-44.8); MCH 31.1 pg (27.0-35.0); MCHC 35.7 g/dL (32.0-36.0); MCV 86.9 fL (80-100); Monocytes % 9.3 % (3.3-12.3); Neutrophils % 64.4 % (41.7-73.7); Platelets 206 thou/uL (152-406); RBC Red Blood Cell Count 4.68 M/uL (4.33-5.43); Red Cell Distribution Width 15.6 % (12.1-15.2)
[2023-06-11 22:56] LABS: PT Prothrombin Time 10.7 SECONDS (9.5-12.5); Protime INR 0.97
[2023-06-11 23:08] LABS: Albumin 3.3 g/dL (3.4-5.0); Anion Gap 12.1 mEq/L (5.0-15.0); Bilirubin Direct 0.2 mg/dL (0-0.2); Bilirubin Indirect, Calculated 0.3 mg/dL (0.2-0.8); Bilirubin Total 0.5 mg/dL (0.2-1.0); Globulin 3.3 g/dL (2.3-3.5); Magnesium 1.7 mg/dL (1.6-2.4); Potassium 3.1 mEq/L (3.5-5.1); Protein, Total 6.6 g/dL (6.4-8.2); Troponin High Sensitivity 21.9 pg/mL (<58.9)
--- NOTE | 2023-06-12 00:20 | EDPHYS ---
Physician Documentation [facility] Name: Giovanni Zhou Age: 53 yrs Sex: Male : 1970 Arrival Date: 06/11/2023 Time: 22:19 Bed 8 Private MD: ED Physician Magdiel Ledesma HPI: 06/11 22:45 This 53 yrs old Male presents to ER via Ambulatory with complaints of Chest Pain. cp 22:45 The patient or guardian reports chest pain that is located primarily in the substernal cp area. 22:45 Onset: 3 day(s) ago, intermittent. The pain radiates to left elbow that started today. cp Associated signs and symptoms: Pertinent negatives: abdominal pain, cough, diaphoresis, dizziness, lower extremity pain, lower extremity swelling, palpitations, shortness of breath. The chest pain is described as burning. Duration: The patient or guardian reports multiple episodes, that are intermittent. Severity of pain: in the emergency department the pain has improved mildly. yes when diagnosed with DE. Patient with PMHX significant for hyperlipidemia, HTN. Hx of DE with 1 stent placed in the past. Primary antenna engineer is DR Jaimes. Historical: - Allergies: 22:36 No Known Allergies; as6 - PMHx: 22:36 Myocardial infarction; Hypertensive disorder; as6 - PSHx: 22:36 Stented artery; knee; as6 - Immunization history:: Adult Immunizations not up to date. - Social history:: Smoking status: Patient reports use of chewing tobacco. ROS: 22:50 Constitutional: Negative for body aches, chills, fever, poor PO intake, cp 22:50 Eyes: Negative for injury, pain, redness, and discharge, cp 22:50 Neck: Negative for pain with movement, pain at rest, stiffness, 22:50 Cardiovascular: Positive for chest pain, Negative for edema, palpitations, 22:50 Respiratory: Negative for cough, shortness of breath, wheezing, 22:50 Abdomen/GI: Negative for abdominal pain, nausea, vomiting, and diarrhea, 22:50 Back: Negative for pain at rest, pain with movement, radiated pain, 22:50 MS/extremity: Positive for left elbow pain, Negative for injury or acute deformity, decreased range of motion, 22:50 Neuro: Negative for altered mental status, dizziness, headache, weakness, 22:50 All other systems are negative, Exam: 22:44 ECG was reviewed by the Attending Physician. cp 22:55 Constitutional: The patient appears in no acute distress, alert, awake, cp non-diaphoretic, non-toxic, well developed, well nourished, overweight 22:55 Head/Face: Normocephalic, atraumatic. cp 22:55 Eyes: Periorbital structures: appear normal, Conjunctiva: normal, no exudate, no injection, Sclera: no appreciated abnormality, Lids and lashes: appear normal, bilaterally, 22:55 ENT: External ear(s): are unremarkable, Nose: is normal, Mouth: Lips: moist, Oral mucosa: pink and intact, moist, Posterior pharynx: is normal, airway is patent, no erythema, no exudate, 22:55 Neck: ROM/movement: is normal, is supple, without pain, no range of motions limitations, no nuchal rigidity, 22:55 Chest/axilla: Inspection: normal, 22:55 Cardiovascular: Rate: normal, Rhythm: regular, Edema: is not appreciated, JVD: is not appreciated, 22:55 Respiratory: the patient does not display signs of respiratory distress, Respirations: normal, no use of accessory muscles, no retractions, labored breathing, is not present, Breath sounds: are clear throughout, no decreased breath sounds, no stridor, no wheezing, 22:55 Abdomen/GI: Inspection: abdomen appears normal, Palpation: abdomen is soft and non-tender, in all quadrants, 22:55 Back: pain, is absent, ROM is normal, 22:55 Neuro: Orientation: to person, place \T\ time. Mentation: is normal, Motor: moves all fours, strength is normal, Sensation: is normal, Vital Signs: 22:35 BP 114 / 91; Pulse 73; Resp 16 S; Temp 98(O); Pulse Ox 97% on R/A; Weight 108.86 kg as6 (R); Height 5 ft. 10 in. (R); Pain 5/10; 23:56 BP 102 / 62; Pulse 70; Resp 18; Pulse Ox 98% on R/A; ap3 0211 00:20 BP 117 / 75 RA; Pulse 78; Resp 17; Pulse Ox 99% ; bf2 00:20 BP 123 / 69 LA; Pulse 74; Resp 22; Pulse Ox 99% ; bf2 06/11 22:35 Body Mass Index 34.44 (108.86 kg, 177.8 cm) as6 06/11 22:35 Pain Scale: Adult as6 MDM: 06/11 22:34 Patient medically screened. cp 23:00 Differential diagnosis: abnormal EKG, acute myocardial infarction, anxiety, cp cholecystitis, Cholelithiasis pleurisy, pneumonia, pneumothorax, pulmonary embolus, stable angina, thoracic aortic disection, unstable angina. 06/12 00:15 The patient was given aspirin in the Emergency Department. cp 00:16 Data reviewed: vital signs, nurses notes, lab test result(s), EKG, radiologic studies, cp plain films. Consideration of Admission/Observation Escalation of care including admission/observation considered. Refusal of service: The patient/guardian displays adequate decision making capability and despite a detailed discussion of alternatives, benefits, risks, and consequences refuses: Admission to the hospital for further work-up and treatment. Special discussion: Based on the patient's history, exam, and Dx evaluation, there is no indication for emergent intervention or inpatient Tx. It is understood by the patient/guardian that if the Sx's persist or worsen they need to return immediately for re-evaluation. ED course: VSS. No complaints chest pain. Patient requesting discharge to f/u outpatient with primary antenna engineer DR Jaimes. 06/11 22:39 Order name: Basic Metabolic Panel; Complete Time: 23:34 as6 06/11 23:34 Interpretation: Normal except: CL 97; K 3.1; NA 131; GLUC 148; CA 8.4. cp 06/11 22:39 Order name: CBC with Diff; Complete Time: 23:34 as6 06/11 23:34 Interpretation: Normal except: RDW 15.6. cp 06/11 22:39 Order name: LFT's; Complete Time: 23:34 as06/11 22:39 Order name: Magnesium; Complete Time: 23:34 as06/11 22:39 Order name: NT PRO-BNP; Complete Time: 23:34 as6 06/11 22:39 Order name: PT-INR; Complete Time: 23:34 as6 06/11 22:39 Order name: Troponin HS; Complete Time: 23:34 as06/11 22:39 Order name: XRAY Chest (1 view) 06/11 22:39 Order name: EKG; Complete Time: 22:39 06/11 22:39 Order name: Cardiac monitoring; Complete Time: 22:39 06/11 22:39 Order name: EKG - Nurse/Tech; Complete Time: 22:41 06/11 22:39 Order name: IV Saline Lock; Complete Time: 22:41 06/11 22:39 Order name: Labs collected and sent; Complete Time: 22:43 06/11 22:39 Order name: O2 Per Protocol; Complete Time: 22:39 06/11 22:39 Order name: O2 Sat Monitoring; Complete Time: 22:39 06/12 00:13 Order name: Blood Pressure Recheck: bilateral arm; Complete Time: 00:24 cp EC/10 22:44 Rate is 73 beats/min. Rhythm is regular. RI interval is normal. QRS interval is cp prolonged at 108 msec. QT interval is normal. Interpreted by me. Reviewed by me. Administered Medications: 06/12 00:24 Drug: Aspirin PO Chewable Tablet 324 mg PO once; 81 mg tablets x 4 Route: PO; ap3 Disposition: 00:21 I was immediately available on-site in the Emergency Department for consultation in the ms3 care of the patient. Disposition Summary: 06/12/23 00:19 Discharge Ordered Notes: Location: Home cp Problem: new cp Symptoms: have improved cp Condition: Stable cp Diagnosis - Chest pain, unspecified cp Followup: cp - With: Private Physician - When: 2 - 3 days - Reason: Recheck today's complaints Discharge Instructions: - Discharge Summary Sheet cp - Nonspecific Chest Pain, Adult cp - Aspirin and Your Heart cp Forms: - Medication Reconciliation Form cp - Thank You Letter cp - Antibiotic Education cp - Prescription Opioid Use cp - Patient Portal Instructions cp - Leadership Thank You Letter cp Signatures: Dispatcher [employer] Patel Carrillo PA PA cp Prokisch, Amanda, RN RN ap3 Magdiel Ledesma, DO ms3 Preet Nichols RN RN as6
--- NOTE | 2023-06-12 00:20 | ER ---
Nurse's Notes [facility] Name: Giovanni Zhou Age: 53 yrs Sex: Male : 1970 Arrival Date: 06/11/2023 Time: 22:19 Bed 8 Private MD: Diagnosis: Chest pain, unspecified Presentation: 06/11 22:36 Chief complaint: Patient states: burning chest pain for the past 3 days that with as6 radiating to left arm that started today. Coronavirus screen: At this time, the client does not indicate any symptoms associated with coronavirus-19. Ebola Screen: No symptoms or risks identified at this time. Initial Sepsis Screen: Does the patient meet any 2 criteria? No. Patient's initial sepsis screen is negative. Does the patient have a suspected source of infection? No. Patient's initial sepsis screen is negative. Risk Assessment: Do you want to hurt yourself or someone else? Patient reports no desire to harm self or others. Onset of symptoms was June 08, 2023. 22:36 Method Of Arrival: Ambulatory as6 22:36 Acuity: ROXANNA 3 as6 Triage Assessment: 22:35 General: Appears in no apparent distress. Behavior is calm, cooperative. Pain: as6 Complains of pain in chest. Historical: - Allergies: 22:36 No Known Allergies; as6 - PMHx: 22:36 Myocardial infarction; Hypertensive disorder; as6 - PSHx: 22:36 Stented artery; knee; as6 - Immunization history:: Adult Immunizations not up to date. - Social history:: Smoking status: Patient reports use of chewing tobacco. Screenin:37 [facility] ED Fall Risk Assessment (Adult) Score/Fall Risk Level 0 - 2 = Low Risk. Abuse as6 screen: Denies threats or abuse. Denies injuries from another. Nutritional screening: No deficits noted. Tuberculosis screening: No symptoms or risk factors identified. Assessment: 23:06 General: Appears in no apparent distress. comfortable, Behavior is calm, cooperative. lg3 Pain: Complains of pain in chest Pain radiates to left arm Pain currently is 6 out of 10 on a pain scale. Pain began 1 day ago. Neuro: No deficits noted. Porter Agitation-Sedation Scale (RASS): 0 - Alert and Calm Level of Consciousness is awake, alert, obeys commands, Oriented to person, place, time, situation. Cardiovascular: Reports chest pain, Heart tones S1 S2 present Rhythm is sinus rhythm Chest pain is described as mild, quality is heaviness, pressure, is located in substernal area. Respiratory: No deficits noted. Airway is patent Respiratory effort is even, unlabored, Respiratory pattern is regular, symmetrical, Breath sounds are clear bilaterally. GI: No deficits noted. No signs and/or symptoms were reported involving the gastrointestinal system. Abdomen is round non-distended, obese. : No deficits noted. No signs and/or symptoms were reported regarding the genitourinary system. EENT: No deficits noted. No signs and/or symptoms were reported regarding the EENT system. Derm: No deficits noted. No signs and/or symptoms reported regarding the dermatologic system. Skin is intact, is healthy with good turgor, Skin is dry, Skin is normal, Skin temperature is warm. Musculoskeletal: No deficits noted. No signs and/or symptoms reported regarding the musculoskeletal system. Circulation, motion, and sensation intact. Range of motion: intact in all extremities. Vital Signs: 22:35 BP 114 / 91; Pulse 73; Resp 16 S; Temp 98(O); Pulse Ox 97% on R/A; Weight 108.86 kg as6 (R); Height 5 ft. 10 in. (R); Pain 5/10; 23:56 BP 102 / 62; Pulse 70; Resp 18; Pulse Ox 98% on R/A; ap3 06/12 00:20 BP 117 / 75 RA; Pulse 78; Resp 17; Pulse Ox 99% ; bf2 00:20 BP 123 / 69 LA; Pulse 74; Resp 22; Pulse Ox 99% ; bf2 06/11 22:35 Body Mass Index 34.44 (108.86 kg, 177.8 cm) as6 06/11 22:35 Pain Scale: Adult as6 ED Course: 06/11 22:22 Patient arrived in ED. ag3 22:26 Patel Montanez PA is PHCP. cp 22:26 Magdiel Ledesma DO is Attending Physician. cp 22:35 Arm band placed on. as6 22:37 Triage completed. as6 22:38 Placed in gown. Bed in low position. Call light in reach. Side rails up X 1. Client as6 placed on continuous cardiac and pulse oximetry monitoring. NIBP monitoring applied. 22:40 Inserted saline lock: 20 gauge in right antecubital area, using aseptic technique. rv1 Blood collected. 22:43 Basic Metabolic Panel Sent. rv1 22:43 CBC with Diff Sent. rv1 22:43 LFT's Sent. rv1 22:43 Magnesium Sent. rv1 22:43 NT PRO-BNP Sent. rv1 22:43 PT-INR Sent. rv1 22:43 Troponin HS Sent. rv1 22:59 XRAY Chest (1 view) In Process Unspecified. EDMS 23:06 Diane Rojo, RN is Primary Nurse. lg3 23:06 Door closed. Noise minimized. Warm blanket given. lg3 23:06 Patient maintains SpO2 saturation greater than 95% on room air. lg3 06/12 00:24 Provided Education on: discharge instructions. ap3 00:24 No provider procedures requiring assistance completed. IV discontinued, intact, ap3 bleeding controlled, No redness/swelling at site. Pressure dressing applied. Administered Medications: 00:24 Drug: Aspirin PO Chewable Tablet 324 mg PO once; 81 mg tablets x 4 Route: PO; ap3 Medication: 06/11 22:38 VIS not applicable for this client. as6 Outcome: 06/12 00:19 Discharge ordered by . cp 00:24 Discharged to home ambulatory, ap3 00:24 Condition: good 00:24 Discharge instructions given to patient, Instructed on discharge instructions, follow up and referral plans. Demonstrated understanding of instructions, follow-up care, 00:24 Patient left the ED. ap3 Signatures: Dispatcher [employer] EDNJ Patel Montanez PA PA cp Prokisch, Amanda, RN RN ap3 Jessica Ramesh 3 Diane Rojo, GILBERTO MACIAS 3 Preet Nichols RN RN as6 Mariza Limon rv1 Grisel Leyva 2 Corrections: (The following items were deleted from the chart) 06/11 22:38 22:36 Acuity: ROXANNA 2 as6 as6
[2023-06-12 01:06] VITALS: BP 123/69; TEMP 98; O2SAT 99
--- NOTE | 2023-06-12 19:55 | RAD REPORT ---
EXAM DESCRIPTION: Chest Single View CLINICAL HISTORY: The patient is 53 years old and is Male; CHEST PAIN Bed Name: 8 TECHNIQUE: Frontal view of the chest. COMPARISON: No relevant prior studies available. FINDINGS: LUNGS: No discrete focal consolidation. PLEURAL SPACE: No appreciable pleural effusion or pneumothorax. MEDIASTINUM: Normal cardiomediastinal contours, allowing for technique and positioning. BONES/JOINTS: No acute osseous abnormality. IMPRESSION: No acute cardiopulmonary abnormality. Electronically signed by: Jaspreet Kim MD 06/11/2023 11:12 PM PIPER INSTALLER Due to temporary technical issues with the PACS/Fluency reporting system, reports are being signed by the in house radiologists without review as a courtesy to insure prompt reporting. The interpreting radiologist is fully responsible for the content of the report.
--- NOTE | 2023-06-13 13:35 | EKG ---
Test Date: 2023-06-11 Test Time: 22:37:41 Creative Resource Manager: ALP MEASUREMENT RESULTS: Intervals: Rate: 73 KS: 114 QRSD: 108 QT: 384 QTc: 423 Steele: P: 44 KS: 114 QRS: 22 T: 30 INTERPRETIVE STATEMENTS: Normal sinus rhythm Normal ECG Compared to ECG 08/26/2006 14:53:14 Left ventricular hypertrophy no longer present Myocardial infarct finding no longer present Electronically Signed On 06-13-23 13:32:53 ELECTRICAL AUTOMATION ENGINEER by Matthew Boles
== END 2023-06-12 00:24 | disposition home or self-care (01) ==
LOC: ER 22:19
DX: R07.9 Chest pain, unspecified (principal)
CPT/HCPCS: 36415; 71045; 80048; 80076; 83735; 83880; 84484; 85025; 85610; 93005; 99284